=== PATIENT | male | born 1930 | race Caucasian/White ===

== ENCOUNTER → 2018-02-07 | Outpatient (CLI) | payer MEDICARE ==
--- NOTE | 2018-02-07 16:44 | RAD ---
CT of the abdomen and pelvis without contrast, 02/07/2018: HISTORY: Left lower quadrant and epigastric pain Noncontrast scans were obtained as requested. There is a calcified granuloma in the right lung base. Coronary artery calcifications are noted. The gallbladder is surgically absent. The unopacified liver is unremarkable. No pancreatic abnormality is seen. The spleen appears to be at the upper limits of normal in size. It measured 12 cm in craniocaudad extent and contains several calcifications. There are several parenchymal calcifications in both kidneys. There are several right renal cysts including a 6 cm cyst arising anterolaterally. A 1.4 cm hyperdense left renal cortical nodule probably represents a hemorrhagic cyst. The kidneys show no evidence of obstruction. The ureters are not dilated. There are radiopacities along the posterior wall of the urinary bladder compatible with intrarenal calculi. The prostate gland is enlarged measuring 5.7 cm in width and producing a moderate impression upon the floor of the urinary bladder. Moderate aortoiliac calcific plaquing is present.. No abdominal or pelvic adenopathy is seen. There are surgical sutures related to the colon in the proximal sigmoid region. The bowel loops are not dilated. No free air or free fluid is evident in the abdomen or pelvis. There are mild to moderate scattered degenerative changes in the spine with a mild thoracolumbar scoliosis. IMPRESSION: 1. Bilateral nonobstructing intrarenal calculi. 2. Multiple bladder calculi. 3. Bilateral renal cysts, with a probable hemorrhagic cyst in the left kidney. 4. Moderate nonspecific prostatic enlargement. 5. Additional miscellaneous findings as described above. PQRS Compliance Statement: One or more of the following individualized dose reduction techniques were utilized for this examination: 1. Automated exposure control 2. Adjustment of the mA and/or kV according to patient size 3. Use of iterative reconstruction technique Electronically signed by: Daniel Crandall MD (02/07/2018 4:40 PM) [facility]
== END | disposition home or self-care (01) ==
LOC: CT 14:02
PROVIDERS: ATTEND Nurse Practitioner Family
DX: N40.0 Benign prostatic hyperplasia without lower urinary tract symptoms (principal); N28.1 Cyst of kidney, acquired; N21.0 Calculus in bladder; M41.85 Other forms of scoliosis, thoracolumbar region; J84.10 Pulmonary fibrosis, unspecified
CPT/HCPCS: 74176

== ENCOUNTER 2018-04-03 09:35 | Inpatient (IN) | payer MEDICARE ==
[~2018-04-03] VITALS: Ht 177.8 cm; Wt 67.4 kg
[2018-04-03 09:53] VITALS: BP 155/79
[2018-04-03] MEDS ORDERED: LACT1CAP6 PO (09:58)
[2018-04-03] MEDS ORDERED: MIRT30TA3 PO (09:58)
[2018-04-03] MEDS ORDERED: CLON0.5T11 PO (09:58)
[2018-04-03] MEDS ORDERED: CLON1TAB4 PO (09:58)
[2018-04-03] MEDS ORDERED: DOCU100C28 PO (09:58)
[2018-04-03] MEDS ORDERED: OMEP20TA8 PO (09:58)
[2018-04-03] MEDS ORDERED: MULT1TAB52 PO (09:58)
[2018-04-03] MEDS ORDERED: MELA3TAB2 PO (09:58)
[2018-04-03 10:57] LABS: ALBUMIN 3.8 g/dL (3.4-5.0); ALBUMIN/GLOBULIN RATIO 1.2 (1.0-1.7); CALCIUM 9.3 mg/dL (8.5-10.1); CREATININE 1.5 mg/dL (0.7-1.3); GFR 44.4; POTASSIUM 3.8 mmol/L (3.5-5.1); TOTAL BILIRUBIN 0.7 mg/dL (0.2-1.0)
[2018-04-03 11:26] LABS: BASO % 0 % (0-3); EOS % 1 % (0-3); HEMATOCRIT 38.5 % (39.0-53.0); HEMOGLOBIN 13.6 g/dL (13.0-17.5); LYMPH # 0.8 x10^3/uL (1.0-4.8); LYMPH % 16 % (24-48); MEAN CORPUSCULAR HEMOGLOBIN 35 pg (25-35); MEAN CORPUSCULAR HGB CONC 35 g/dL (31-37); MEAN CORPUSCULAR VOLUME 100 fL (79-100); MONO # 0.3 x10^3/uL (0.0-1.1); MONO % 6 % (0-9); NEUT # 3.9 x10^3uL (1.8-7.7); NEUT % 78 % (31-73); PLATELET COUNT 156 x10^3/uL (140-400); RED BLOOD COUNT 3.86 x10^6/uL (4.30-5.70); RED CELL DISTRIBUTION WIDTH 14.5 % (11.5-14.5); WHITE BLOOD COUNT 5.1 x10^3/uL (4.0-11.0)
--- NOTE | 2018-04-03 12:09 | EKG ---
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
[2018-04-03 13:39] LABS: BILIRUBIN,URINE NEG (NEG); CLARITY,URINE CLEAR; COLOR,URINE YELLOW; GLUCOSE,URINE NEG (NEG); NITRITE,URINE NEG (NEG); UROBILINOGEN,URINE 0.2 mg/dL (0.2 mg/dL)
[2018-04-03 13:40] LABS: BACTERIA,URINE FEW /HPF (0-FEW); SQUAMOUS EPITHELIAL CELL,UR OCC /LPF
--- NOTE | 2018-04-03 13:52 | RAD ---
Chest, 2 views, 04/03/2018: HISTORY: Shortness of breath The heart size is normal. There is mild tortuosity of the thoracic aorta. There is attenuation of the peripheral pulmonary vasculature, particularly in the upper lobes, suggesting emphysema. No pulmonary infiltrate is seen. There is no evidence of pleural fluid. There is mild anterior wedging of several upper thoracic vertebral bodies with associated accentuation of the normal upper thoracic kyphosis. Moderate scattered spurs are present. IMPRESSION: 1. Emphysema. 2. No acute infiltrates. Electronically signed by: Daniel Crandall MD (04/03/2018 1:48 PM) [facility]
--- NOTE | 2018-04-03 14:19 | RAD ---
CT of the abdomen and pelvis without contrast, 04/03/2018: HISTORY: Abdominal pain Noncontrast scans were obtained as requested and compared to a study from 02/07/2018. There are multiple bilateral intrarenal calculi. The renal collecting systems and ureters are not dilated. No ureteral calculus is identified. There are several right renal cysts. The largest of these measures 7 cm. A 1.4 cm hyperdense cortical nodule arising from the posterior aspect of the left kidney is unchanged and is probably a hemorrhagic cyst. There are several radiopacities along the posterior wall the urinary bladder compatible with bladder calculi. The enlarged prostate gland is producing a moderate impression upon the floor of the urinary bladder on the left. The bladder walker are otherwise unremarkable. The unopacified liver is unremarkable. The gallbladder is surgically absent. No pancreatic abnormality is seen. The spleen is near the upper limits of normal in size. Moderate aortoiliac calcific plaquing is present without evidence of aneurysm. No abdominal or pelvic adenopathy is seen. There are surgical sutures related to the sigmoid colon. The bowel loops are not dilated. No free fluid or free air is evident in the abdomen or pelvis. There is a moderate thoracolumbar scoliosis with moderate multilevel degenerative change. IMPRESSION: 1. Bilateral nonobstructing intrarenal calculi. 2. Bilateral renal cysts. 3. Multiple small bladder calculi. 4. Nonspecific prostatic enlargement. 5. No acute abdominal abnormality is detected. Electronically signed by: Daniel Crandall MD (04/03/2018 2:15 PM) [facility]
[2018-04-03 15:28] VITALS: BP 118/72
[2018-04-03] MEDS: CALCIUM CARBONATE 500 MG TAB.CHEW PO PRN (18:22)
[2018-04-03] MEDS: MELATONIN 3 MG TABLET PO SCH (20:05)
[2018-04-03] MEDS: DOCUSATE SODIUM 100 MG CAPSULE PO SCH (20:06)
[2018-04-03] MEDS: clonazePAM 1 MG TABLET PO SCH (20:06)
[2018-04-03] MEDS: MIRTAZAPINE 30 MG TABLET PO SCH (20:06)
[2018-04-03 20:26] VITALS: BP 121/70
--- NOTE | 2018-04-03 20:35 | PDOC ---
Exam Note: Lopez Note: Please also refer to the separate dictated note~for this date of service dictated separately.~Patient seen individually. Discussed the patient with Nursing staff reviewed the chart.~Reviewed interim history and current functioning. Reviewed vital signs,~Labs/ Radiology~and current medications noted below. Continue current treatment with the changes noted in the dictated addendum note Assessment: Vital Signs: Vital Signs Date Time Temp Pulse Resp B/P (MAP) Pulse Ox O2 Delivery O2 Flow Rate FiO2 04/03/18 20:26 99.3 71 18 121/70 (87) 95 04/03/18 10:00 Room Air Labs: Laboratory Tests Test 04/03/18 10:20 04/03/18 10:40 04/03/18 11:13 White Blood Count 5.1 x10^3/uL (4.0-11.0) Red Blood Count 3.86 x10^6/uL (4.30-5.70) L Hemoglobin 13.6 g/dL (13.0-17.5) Hematocrit 38.5 % (39.0-53.0) L Mean Corpuscular Volume 100 fL (79-100) Mean Corpuscular Hemoglobin 35 pg (25-35) Mean Corpuscular Hemoglobin Concent 35 g/dL (31-37) Red Cell Distribution Width 14.5 % (11.5-14.5) Platelet Count 156 x10^3/uL (140-400) Neutrophils (%) (Auto) 78 % (31-73) H Lymphocytes (%) (Auto) 16 % (24-48) L Monocytes (%) (Auto) 6 % (0-9) Eosinophils (%) (Auto) 1 % (0-3) Basophils (%) (Auto) 0 % (0-3) Neutrophils # (Auto) 3.9 x10^3uL (1.8-7.7) Lymphocytes # (Auto) 0.8 x10^3/uL (1.0-4.8) L Monocytes # (Auto) 0.3 x10^3/uL (0.0-1.1) Eosinophils # (Auto) 0.0 x10^3/uL (0.0-0.7) Basophils # (Auto) 0.0 x10^3/uL (0.0-0.2) Sodium Level 139 mmol/L (136-145) Potassium Level 3.8 mmol/L (3.5-5.1) Chloride Level 106 mmol/L (98-107) Carbon Dioxide Level 27 mmol/L (21-32) Anion Gap 6 (6-14) Blood Urea Nitrogen 16 mg/dL (8-26) Creatinine 1.5 mg/dL (0.7-1.3) H Estimated GFR (Cockcroft-Gault) 44.4 BUN/Creatinine Ratio 11 (6-20) Glucose Level 124 mg/dL (70-99) H Lactic Acid Level 1.7 mmol/L (0.4-2.0) Calcium Level 9.3 mg/dL (8.5-10.1) Total Bilirubin 0.7 mg/dL (0.2-1.0) Aspartate Amino Transferase (AST) 11 U/L (15-37) L Alanine Aminotransferase (ALT) 25 U/L (16-63) Alkaline Phosphatase 61 U/L (46-116) Creatine Kinase 41 U/L (39-308) Troponin I Quantitative < 0.017 ng/mL (0-0.055) Total Protein 7.0 g/dL (6.4-8.2) Albumin 3.8 g/dL (3.4-5.0) Albumin/Globulin Ratio 1.2 (1.0-1.7) Thyroid Stimulating Hormone (TSH) 1.631 uIU/mL (0.358-3.740) D-Dimer (Love) 0.48 mg/L (0.00-0.50) Urine Collection Type Void Urine Color Yellow Urine Clarity Clear Urine pH 6.5 Urine Specific Spicer 1.015 Urine Protein Neg (NEG-TRACE) Urine Glucose (UA) Neg mg/dL (NEG) Urine Ketones (Stick) Neg mg/dL (NEG) Urine Blood Neg (NEG) Urine Nitrite Neg (NEG) Urine Bilirubin Neg (NEG) Urine Urobilinogen Dipstick 0.2 mg/dL (0.2 mg/dL) Urine Leukocyte Esterase Neg (NEG) Urine RBC 1-2 /HPF (0-2) Urine WBC 1-4 /HPF (0-4) Urine Squamous Epithelial Cells Occ /LPF Urine Bacteria Few /HPF (0-FEW) Urine Mucus Slight /LPF Current Medications: Meds: Current Medications Clonazepam (KlonoPIN) 0.5 mg DAILY PO ; Start 8/13/18 at 09:00 Mirtazapine (Remeron) 30 mg QHS PO Last administered on 04/03/18at 20:06; Start 04/03/18 at 21:00 Clonazepam (KlonoPIN) 1 mg QHS PO Last administered on 04/03/18at 20:06; Start 04/03/18 at 21:00 Docusate Sodium (Colace) 100 mg BID PO Last administered on 04/03/18at 20:06; Start 04/03/18 at 21:00 Lactobacillus Rhamnosus (Culturelle) 1 cap DAILY PO ; Start 04/04/18 at 09:00 Melatonin 3 mg QHS PO Last administered on 04/03/18at 20:05; Start 04/03/18 at 21:00 Multivitamins/ Calcium (Thera-M Plus) 1 tab DAILY PO ; Start 04/04/18 at 09:00 Pantoprazole Sodium (Protonix) 40 mg DAILYAC PO ; Start 04/04/18 at 07:30 Calcium Carbonate/ Glycine (Tums) 500 mg PRN AFTMEALHC PRN PO INDIGESTION Last administered on 04/03/18at 18:22; Start 04/03/18 at 17:00 Active Scripts Active Reported Melatonin 3 Mg Tablet 1 Mg PO HS Mirtazapine 30 Mg Tablet 1 Tab PO QHS Docusate Sodium 100 Mg Capsule 1 Cap PO BID Probiotic (Lactobacillus Acidophilus) 1 Each Capsule 1 Each PO DAILY Multivitamins (Multivitamin) 1 Each Tablet 1 Tab PO DAILY Omeprazole 20 Mg Tablet. 1 Tab PO DAILY Clonazepam 1 Mg Tablet 1 Tab PO QHS Clonazepam 0.5 Mg Tablet 1 Tab PO DAILY I have reviewed the current psychotropics carefully including drug interactions. Risk benefit ratio favors no change other than as noted in my dictated progress note. Diagnosis: Problems: (1) Anxiety disorder (2) Major depressive disorder, recurrent episode RADHA MILLER MD Apr 03, 2018 20:35
[2018-04-04] MEDS: CALCIUM CARBONATE 500 MG TAB.CHEW PO PRN ×2 (00:51→08:18)
[2018-04-04 06:12] VITALS: BP 115/69
[2018-04-04 06:52] LABS: BASO % 1 % (0-3); EOS # 0.1 x10^3/uL (0.0-0.7); EOS % 2 % (0-3); HEMATOCRIT 35.6 % (39.0-53.0); HEMOGLOBIN 12.9 g/dL (13.0-17.5); LYMPH # 1.3 x10^3/uL (1.0-4.8); LYMPH % 18 % (24-48); MEAN CORPUSCULAR HEMOGLOBIN 36 pg (25-35); MEAN CORPUSCULAR HGB CONC 36 g/dL (31-37); MEAN CORPUSCULAR VOLUME 100 fL (79-100); MONO # 0.4 x10^3/uL (0.0-1.1); MONO % 6 % (0-9); NEUT # 5.3 x10^3uL (1.8-7.7); NEUT % 75 % (31-73); PLATELET COUNT 145 x10^3/uL (140-400); RED BLOOD COUNT 3.57 x10^6/uL (4.30-5.70); RED CELL DISTRIBUTION WIDTH 14.4 % (11.5-14.5); WHITE BLOOD COUNT 7.1 x10^3/uL (4.0-11.0)
[2018-04-04 07:02] LABS: CALCIUM 9.1 mg/dL (8.5-10.1); CREATININE 1.3 mg/dL (0.7-1.3); GFR 52.3; POTASSIUM 3.8 mmol/L (3.5-5.1)
[2018-04-04] MEDS: LACTOBACILLUS RHAMNOSUS GG 1 CAPSULE. PO SCH (08:18)
[2018-04-04] MEDS: MULTIVITAMIN with MINERAL TABLET. PO SCH (08:18)
[2018-04-04] MEDS: PANTOPRAZOLE 40 MG TABLET. PO SCH (08:18)
[2018-04-04] MEDS: DOCUSATE SODIUM 100 MG CAPSULE PO SCH ×2 (08:19→21:05)
[2018-04-04] MEDS ORDERED: clonazePAM 0.5 MG TABLET PO SCH (09:00)
[2018-04-04 10:55] VITALS: BP 100/54
[2018-04-04 14:50] VITALS: BP 126/69
--- NOTE | 2018-04-04 18:12 | PDOC ---
Exam Note: Lopez Note: Please also refer to the separate dictated note~for this date of service dictated separately.~Patient seen individually. Discussed the patient with Nursing staff reviewed the chart.~Reviewed interim history and current functioning. Reviewed vital signs,~Labs/ Radiology~and current medications noted below. Continue current treatment with the changes noted in the dictated addendum note Assessment: Vital Signs: Vital Signs Date Time Temp Pulse Resp B/P (MAP) Pulse Ox O2 Delivery O2 Flow Rate FiO2 04/04/18 14:50 98.5 66 18 126/69 (88) 97 Room Air I&O Intake and Output 04/04/18 06:59 Intake Total 500 ml Output Total 325 ml Balance 175 ml Intake Oral 500 ml Output Urine Total 325 ml # Voids 2 Labs: Laboratory Tests Test 04/04/18 05:35 White Blood Count 7.1 x10^3/uL (4.0-11.0) Red Blood Count 3.57 x10^6/uL (4.30-5.70) L Hemoglobin 12.9 g/dL (13.0-17.5) L Hematocrit 35.6 % (39.0-53.0) L Mean Corpuscular Volume 100 fL (79-100) Mean Corpuscular Hemoglobin 36 pg (25-35) H Mean Corpuscular Hemoglobin Concent 36 g/dL (31-37) Red Cell Distribution Width 14.4 % (11.5-14.5) Platelet Count 145 x10^3/uL (140-400) Neutrophils (%) (Auto) 75 % (31-73) H Lymphocytes (%) (Auto) 18 % (24-48) L Monocytes (%) (Auto) 6 % (0-9) Eosinophils (%) (Auto) 2 % (0-3) Basophils (%) (Auto) 1 % (0-3) Neutrophils # (Auto) 5.3 x10^3uL (1.8-7.7) Lymphocytes # (Auto) 1.3 x10^3/uL (1.0-4.8) Monocytes # (Auto) 0.4 x10^3/uL (0.0-1.1) Eosinophils # (Auto) 0.1 x10^3/uL (0.0-0.7) Basophils # (Auto) 0.0 x10^3/uL (0.0-0.2) Sodium Level 143 mmol/L (136-145) Potassium Level 3.8 mmol/L (3.5-5.1) Chloride Level 107 mmol/L (98-107) Carbon Dioxide Level 27 mmol/L (21-32) Anion Gap 9 (6-14) Blood Urea Nitrogen 15 mg/dL (8-26) Creatinine 1.3 mg/dL (0.7-1.3) Estimated GFR (Cockcroft-Gault) 52.3 Glucose Level 103 mg/dL (70-99) H Calcium Level 9.1 mg/dL (8.5-10.1) Current Medications: Meds: Current Medications Clonazepam (KlonoPIN) 0.5 mg DAILY PO Last administered on 04/04/18 08:18; Start 04/04/18 at 09:00 Mirtazapine (Remeron) 30 mg QHS PO Last administered on 04/03/18at 20:06; Start 04/03/18 at 21:00 Clonazepam (KlonoPIN) 1 mg QHS PO Last administered on 04/03/18at 20:06; Start 04/03/18 at 21:00 Docusate Sodium (Colace) 100 mg BID PO Last administered on 04/04/18 08:19; Start 04/03/18 at 21:00 Lactobacillus Rhamnosus (Culturelle) 1 cap DAILY PO Last administered on at 08:18; Start 04/04/18 at 09:00 Melatonin 3 mg QHS PO Last administered on 04/03/18at 20:05; Start 04/03/18 at 21:00 Multivitamins/ Calcium (Thera-M Plus) 1 tab DAILY PO Last administered on at 08:18; Start 04/04/18 at 09:00 Pantoprazole Sodium (Protonix) 40 mg DAILYAC PO Last administered on 04/04/18 08:18; Start 04/04/18 at 07:30 Calcium Carbonate/ Glycine (Tums) 500 mg PRN AFTMEALHC PRN PO INDIGESTION Last administered on 04/04/18at 08:18; Start 04/03/18 at 17:00 Active Scripts Active Reported Melatonin 3 Mg Tablet 1 Mg PO HS Mirtazapine 30 Mg Tablet 1 Tab PO QHS Docusate Sodium 100 Mg Capsule 1 Cap PO BID Probiotic (Lactobacillus Acidophilus) 1 Each Capsule 1 Each PO DAILY Multivitamins (Multivitamin) 1 Each Tablet 1 Tab PO DAILY Omeprazole 20 Mg Tablet. 1 Tab PO DAILY Clonazepam 1 Mg Tablet 1 Tab PO QHS Clonazepam 0.5 Mg Tablet 1 Tab PO DAILY I have reviewed the current psychotropics carefully including drug interactions. Risk benefit ratio favors no change other than as noted in my dictated progress note. 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
[2018-04-04] MEDS ORDERED: POLY17PO5 PO (18:29)
[2018-04-04 19:56] VITALS: BP 127/70
[2018-04-04] MEDS: MIRTAZAPINE 30 MG TABLET PO SCH (21:05)
[2018-04-04] MEDS: clonazePAM 1 MG TABLET PO SCH (21:05)
[2018-04-04] MEDS: MELATONIN 3 MG TABLET PO SCH (21:05)
--- NOTE | 2018-04-04 22:59 | CONS ---
DATE OF CONSULTATION: 04/03/2018 PSYCHIATRIC CONSULTATION This is late entry, date of service 04/03, covers elements not covered in my initial note, 04/03. SUBJECTIVE: I met with the patient in the evening. IDENTIFYING DATA: The patient is an 87-year-old male seen in bed 103, [facility], for a psychiatric consult requested by Dr. Palencia on account of the patient's change in mental status, depression, confusion. The patient seen individually, discussed with nursing staff, reviewed the chart. CHIEF COMPLAINT: "I came here this morning. [place], the year is 1917. The president, O I can't think of his name." HISTORY OF PRESENT ILLNESS: The patient has a history of dementia, Alzheimer's, vascular with depression and anxiety. He was admitted from home on account of worsening confusion. He lives alone at home with his niece involved in his care, but there have been concerns about his safety living at home, possibly needing a more structured placement. He complains of ongoing insomnia. No clear suicidal or homicidal ideation. No clear psychotic symptoms. No symptoms of bipolar disorder. PAST PSYCHIATRIC HISTORY: Positive for progressive memory deficits, depression, anxiety. MEDICAL HISTORY: Chronic constipation, GERD. CURRENT PSYCHOTROPICS: Klonopin 1 mg at bedtime, 0.5 mg in the morning; melatonin 3 mg at bedtime; Remeron 30 mg at bedtime. DRUG ALLERGIES: Negative. FAMILY HISTORY: Noncontributory. 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 No alcohol or drug abuse, physical, sexual or elder abuse history is noted. When specifically questioned on alcohol, he stated "I would snort it once in a while." MENTAL STATUS EXAM: The patient was seen individually evening of 04/03. He is oriented to himself, situation at times, unaware of the year as noted, unaware of the President, though he did not know he was admitted earlier in the day on 04/03. It is concerning that he lives alone at home. Speech has some latency, coherent. Abstraction fair, computation impaired, language function intact. No suicidal or homicidal ideation. IMPRESSION: Major neurocognitive disorder, probably Alzheimer, vascular with depression, delusions; anxiety disorder, unspecified. Rest as above. PLAN: From a psychiatric standpoint, we may need to reduce the patient's Klonopin since it could be worsening his cognition and increase the fall risk. Maintain melatonin, Remeron for now. This patient probably needs a higher level of care rather than returning home and if needed, we may transfer him to the [facility] prior to transfer to a nursing facility. Dr. Palencia, thank you for the opportunity to participate in your patient's care. We will follow with you. RADHA MILLER MD DR: ALNA/nts JOB#: [id number] / [id number]
--- NOTE | 2018-04-04 23:01 | PN ---
DATE: 04/04/2018 PSYCHIATRIC PROGRESS NOTE This note covers elements not covered in my initial note 04/04. SUBJECTIVE: The patient was seen individually. Per nursing report, the patient remains confused, but otherwise cooperative. No psychotic symptoms, suicidal or homicidal ideation. He has had some ongoing insomnia. MENTAL STATUS EXAM: Oriented to himself. Insight, judgment, recent memory is impaired. Language function intact. Attention span short. Mood and affect somewhat withdrawn. LABORATORY DATA: Reviewed. IMPRESSION: Unchanged from initial note. PLAN: Stop the morning Klonopin. We will gradually reduce the nighttime Klonopin as well. Rest unchanged from initial note. MAN Berta MILLER MD DR: ALAN/thomas JOB#: [id number] / [id number]
--- NOTE | 2018-04-05 01:34 | PN ---
DATE: SUBJECTIVE: An 87-year-old gentleman who came in with acute change in mental status, markedly confused, disoriented, not able to give the year or rough year. Otherwise, the patient's labs look basically stable. PHYSICAL EXAMINATION: VITAL SIGNS: Blood pressure 100/54, respiration 18, pulse 65, afebrile. GENERAL: The patient is alert and oriented, somewhat confused and disoriented at times. The patient was complaining of some abdominal pain and basically did not show anything specifically to evaluate that. In any case, the patient is making relatively good progress. Seeing Dr. Alvarez. IMPRESSION: Acute mental status change. PLAN: As above. JC ELLIS MD DR: GAUTAM/thomas JOB#: [id number] / [id number]
[2018-04-05 02:04] VITALS: BP 116/72
[2018-04-05 06:36] VITALS: BP 127/73
[2018-04-05] MEDS: LACTOBACILLUS RHAMNOSUS GG 1 CAPSULE. PO SCH (07:33)
[2018-04-05] MEDS: MULTIVITAMIN with MINERAL TABLET. PO SCH (07:33)
[2018-04-05] MEDS: DOCUSATE SODIUM 100 MG CAPSULE PO SCH (07:33)
[2018-04-05] MEDS: PANTOPRAZOLE 40 MG TABLET. PO SCH (07:33)
[2018-04-05] MEDS ORDERED: POLYETHYLENE GLYCOL 3350 17 GM PACKET. PO SCH (09:00)
[2018-04-05] MEDS ORDERED: CALC200T23 PO (14:11)
[2018-04-05 14:39] VITALS: BP 144/77
== END 2018-04-05 15:12 | DRG 690 ==
LOC: 1 SOUTH 09:35 → LND 04-04 20:59
PROVIDERS: ADMIT Family Medicine; ATTEND Family Medicine
DX: N39.0 Urinary tract infection, site not specified (principal); F33.9 Major depressive disorder, recurrent, unspecified; F01.50 Vascular dementia, unspecified severity, without behavioral disturbance, psychotic disturbance, mood disturbance, and anxiety; F02.80 Dementia in other diseases classified elsewhere, unspecified severity, without behavioral disturbance, psychotic disturbance, mood disturbance, and anxiety; F41.9 Anxiety disorder, unspecified; F63.9 Impulse disorder, unspecified; G30.9 Alzheimer's disease, unspecified; G47.00 Insomnia, unspecified; K21.9 Gastro-esophageal reflux disease without esophagitis; K59.09 Other constipation; I10 Essential (primary) hypertension
CPT/HCPCS: 36415; 71046; 74176; 80048; 80053; 81001; 82550; 82607; 83605; 84443; 84484; 85025; 85379; 93005; 97110; 97530; 97535

== ENCOUNTER 2018-04-05 15:05 | Inpatient (IN) | payer MEDICARE ==
[~2018-04-05] VITALS: Ht 172.7 cm; Wt 67.3 kg
[~2018-04-05 15:05] MED LIST: CALC200T23 PO; CLON0.5T11 PO; CLON1TAB4 PO; DOCU100C28 PO; LACT1CAP6 PO; MELA3TAB2 PO; MIRT30TA3 PO; MULT1TAB52 PO; OMEP20TA8 PO; POLY17PO5 PO
[2018-04-05 16:18] VITALS: BP 144/77
[2018-04-05] MEDS ORDERED: MAG HYDROX/AL HYDROX/SIMETH 30 ML ORAL.SUSP PO PRN (17:45)
[2018-04-05] MEDS ORDERED: ACETAMINOPHEN 325 MG TABLET PO PRN (17:45)
[2018-04-05] MEDS ORDERED: METHYL SALICYLATE/MENTHOL TOPICAL OINTMENT 29GM TUBE. TP PRN (17:45)
[2018-04-05] MEDS ORDERED: MAGNESIUM HYDROXIDE 2,400 MG/30 ML ORAL.SUSP. PO PRN (17:45)
[2018-04-05] MEDS: DOCUSATE SODIUM 100 MG CAPSULE PO SCH (19:55)
[2018-04-05] MEDS: MELATONIN 3 MG TABLET PO SCH (19:55)
[2018-04-05] MEDS: MIRTAZAPINE 30 MG TABLET PO SCH (19:55)
[2018-04-05 20:31] LABS: BASO % 1 % (0-3); EOS # 0.1 x10^3/uL (0.0-0.7); EOS % 1 % (0-3); HEMATOCRIT 38.4 % (39.0-53.0); HEMOGLOBIN 13.5 g/dL (13.0-17.5); LYMPH % 16 % (24-48); MEAN CORPUSCULAR HEMOGLOBIN 36 pg (25-35); MEAN CORPUSCULAR HGB CONC 35 g/dL (31-37); MEAN CORPUSCULAR VOLUME 101 fL (79-100); MONO # 0.3 x10^3/uL (0.0-1.1); MONO % 6 % (0-9); NEUT # 4.8 x10^3uL (1.8-7.7); NEUT % 77 % (31-73); PLATELET COUNT 160 x10^3/uL (140-400); RED CELL DISTRIBUTION WIDTH 14.3 % (11.5-14.5); WHITE BLOOD COUNT 6.3 x10^3/uL (4.0-11.0)
[2018-04-05 20:44] LABS: ALBUMIN 3.8 g/dL (3.4-5.0); ALBUMIN/GLOBULIN RATIO 1.2 (1.0-1.7); CREATININE 1.5 mg/dL (0.7-1.3); GFR 44.4; MAGNESIUM 1.9 mg/dL (1.8-2.4); POTASSIUM 3.9 mmol/L (3.5-5.1); TOTAL BILIRUBIN 0.6 mg/dL (0.2-1.0)
[2018-04-06 00:27] VITALS: BP 135/90
[2018-04-06] MEDS: traZODone 50 MG TABLET. PO PRN ×2 (00:27→23:15)
[2018-04-06 05:46] VITALS: BP 135/75
[2018-04-06] MEDS: POLYETHYLENE GLYCOL 3350 17 GM PACKET. PO SCH (08:17)
[2018-04-06] MEDS: PANTOPRAZOLE 40 MG TABLET. PO SCH (08:17)
[2018-04-06] MEDS: LACTOBACILLUS RHAMNOSUS GG 1 CAPSULE. PO SCH (08:17)
[2018-04-06] MEDS: DOCUSATE SODIUM 100 MG CAPSULE PO SCH ×2 (08:17→19:33)
[2018-04-06] MEDS: MULTIVITAMIN with MINERAL TABLET. PO SCH (08:17)
[2018-04-06 12:47] LABS: THYROID STIM HORMONE (TSH) 2.209 uIU/mL (0.358-3.740)
[2018-04-06] MEDS ORDERED: OLANZapine 2.5 MG TABLET PO PRN (14:45)
[2018-04-06 16:12] LABS: THYROXINE 7.7 ug/dL (4.5-12.0)
[2018-04-06 16:19] VITALS: BP 167/90
[2018-04-06] MEDS: OLANZapine 2.5 MG TABLET PO PRN (17:41)
[2018-04-06] MEDS: MIRTAZAPINE 30 MG TABLET PO SCH (19:33)
[2018-04-06] MEDS: CALCIUM CARBONATE 500 MG TAB.CHEW PO PRN (19:33)
[2018-04-06] MEDS: MELATONIN 3 MG TABLET PO SCH (19:33)
--- NOTE | 2018-04-06 21:59 | HP ---
ADMIT DATE: 04/05/2018 PSYCHIATRIC ADMISSION HISTORY/EVALUATION This late entry date of service 04/05/2018 covers elements not covered in my initial note. SUMMARY OF PROGRESS: Met with the patient in the evening of 04/05/2018. IDENTIFYING DATA: The patient is an 87-year-old male referred to us from [address] [place] [address] Medical/Surgical floor by Dr. Gandhi, his primary care physician on account of worsening confusion, symptoms of depression, agitation. I had followed the patient on the medical/surgical floor [address] [place] [address] from a psychiatric standpoint referred by Dr. Palencia on account of worsening anxiety, depression within the context of his dementia. The patient has been living at home by himself. Niece was involved in his care. He has been extremely disorganized, potential danger, unsafe, living alone by himself admitted to [address] [place] [address], medically stabilized and then referred to us for psychiatric stabilization. 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 He has had sleep and appetite changes, worsening depression, anxiety, felt to be unsafe by herself at home and was admitted to [address] [place] [address]. No clear history of bipolar disorder, suicidal or homicidal ideation. PAST PSYCHIATRIC HISTORY: As above. PAST MEDICAL HISTORY: History of renal stone, status post cholecystectomy, GERD, chronic constipation, dementia. CURRENT PSYCHOTROPICS: Melatonin 3 mg at bedtime, Remeron 30 mg at bedtime, Klonopin was 0.5 mg a.m., 1 mg at bedtime and had reduced this on [address] [place] [address] to 1 mg at bedtime in an attempt to taper and ultimately discontinue it. DRUG ALLERGIES: Negative. CODE STATUS: DNR. DIET: Regular. Takes medications whole, ambulates up ad monty. No assistive devices. FAMILY HISTORY: Noncontributory. SOCIAL HISTORY: Lives alone by himself as noted. No alcohol or drug abuse, physical, sexual or elder abuse history is noted. Not known to be a perpetrator. 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 REACTION TO HOSPITALIZATION: The patient is oblivious of this. ASSETS: Supportive family. MENTAL STATUS EXAMINATION: The patient is oriented to himself. Insight, judgment, recent and remote memory, attention, concentration, fund of knowledge is poor, consistent with his diagnoses. He is quite anxious, restless, somewhat paranoid at times. No suicidal or homicidal ideation. IMPRESSION: Major neurocognitive disorder; Alzheimer's vascular with delusion, depression, behavioral disturbance; anxiety disorder, unspecified; impulse control disorder, unspecified. Rest as above. PLAN: Admit to Geropsychiatry Unit at [facility]. I will see the patient daily individually from a psychiatric standpoint, medical followup per Dr. Gandhi/Dr. Rose/Dr. Rizvi. Continue current psychotropics, observe baseline, adjust psychotropics as clinically indicated. Taper and stop the Klonopin, if needed. Will add Seroquel for anxiety, mood lability, psychotic symptoms. Estimated length of stay 10-12 days. DISCHARGE DISPOSITION: Plans to long-term, possibly. MAN Berta MILLER MD DR: ALAN/thomas JOB#: [id number] / [id number]
[2018-04-07 01:07] LABS: HEMOGLOBIN A1C 4.7 % (4.8-5.6)
[2018-04-07] MEDS: traZODone 50 MG TABLET. PO PRN ×2 (02:11→19:39)
--- NOTE | 2018-04-07 02:54 | PDOC ---
Exam Note: Lopez Note: Please also refer to the separate dictated note~for this date of service dictated separately.~Patient seen individually. Discussed the patient with Nursing staff reviewed the chart.~Reviewed interim history and current functioning. Reviewed vital signs,~Labs/ Radiology~and current medications noted below. Continue current treatment with the changes noted in the dictated addendum note Assessment: Vital Signs: Vital Signs Date Time Temp Pulse Resp B/P (MAP) Pulse Ox O2 Delivery O2 Flow Rate FiO2 04/06/18 16:19 98.0 93 22 167/90 (115) 95 04/06/18 05:46 Room Air I&O Intake and Output 04/07/18 07:00 Intake Total 1200 ml Balance 1200 ml Intake Oral 1200 ml # Voids 1 Current Medications: Meds: Current Medications Acetaminophen (Tylenol) 650 mg PRN Q6HRS PRN PO PAIN / TEMP; Start 04/05/18 at 17:45 Multi-Ingredient Ointment (Analgesic [place]) 1 danica PRN QID PRN TP MUSCLE PAIN; Start 04/05/18 at 17:45 Al Hydroxide/Mg Hydroxide (Mylanta Plus Xs) 15 ml PRN AFTMEALHC PRN PO DYSPEPSIA Last administered on 04/07/18at 02:11; Start 04/05/18 at 17:45 Magnesium Hydroxide (Milk Of Magnesia) 2,400 mg PRN QHS PRN PO CONSTIPATION; Start 04/05/18 at 17:45 Calcium Carbonate/ Glycine (Tums) 500 mg PRN AFTMEALHC PRN PO INDIGESTION Last administered on 04/06/18at 19:33; Start 04/05/18 at 18:30 Mirtazapine (Remeron) 30 mg QHS PO Last administered on 04/06/18at 19:33; Start 04/05/18 at 21:00 Docusate Sodium (Colace) 100 mg BID PO Last administered on 04/06/18 19:33; Start 04/05/18 at 21:00 Lactobacillus Rhamnosus (Culturelle) 1 cap DAILY PO Last administered on at 08:17; Start 04/06/18 at 09:00 Melatonin 3 mg HS PO Last administered on 04/06/18at 19:33; Start 04/05/18 at 21 :00 Multivitamins/ Calcium (Thera-M Plus) 1 tab DAILY PO Last administered on 08:17; Start 04/06/18 at 09:00 Pantoprazole Sodium (Protonix) 40 mg DAILY PO Last administered on 04/06/18at 08 :17; Start 04/06/18 at 09:00 Polyethylene Glycol (miraLAX) 17 gm DAILY PO Last administered on 04/06/18at 08: 17; Start 04/06/18 at 09:00 Trazodone HCl (Desyrel) 50 mg PRN QHS PRN PO INSOMNIA Last administered on 04/07at 02:11; Start 04/06/18 at 00:15 Olanzapine (ZyPREXA) 2.5 mg PRN Q24HRS PRN PO PSYCHOSIS; Start 04/06/18 at 14: 45; Stop 04/06/18 at 14:59; Status DC Olanzapine (ZyPREXA) 2.5 mg PRN Q2HR PRN PO ANXIETY/PSYCHOSIS Last administered on 04/06/18at 17:41; Start 04/06/18 at 15:00 Active Scripts Active Calcium Carbonate 200 Mg Tab.chew 500 Mg PO PRN AFTMEALHC PRN 30 Days Reported Miralax (Polyethylene Glycol 3350) 17 Gm Powd.pack 1 Packet PO DAILY LAST DOSE GIVEN: DATE: TIME: NEXT DOSE DUE: DATE: TIME: Melatonin 3 Mg Tablet 1 Mg PO HS Mirtazapine 30 Mg Tablet 1 Tab PO QHS Docusate Sodium 100 Mg Capsule 1 Cap PO BID Probiotic (Lactobacillus Acidophilus) 1 Each Capsule 1 Each PO DAILY Multivitamins (Multivitamin) 1 Each Tablet 1 Tab PO DAILY Omeprazole 20 Mg Tablet. 1 Tab PO DAILY Clonazepam 1 Mg Tablet 1 Tab PO QHS I have reviewed the current psychotropics carefully including drug interactions. Risk benefit ratio favors no change other than as noted in my dictated progress note. Diagnosis: Problems: (1) Anxiety disorder (2) Impulse control disorder (3) Dementia, vascular, with depression (4) Dementia in Alzheimer's disease with depression (5) Altered mental status (6) Anxiety disorder (7) Major depressive disorder, recurrent episode RADHA MILLER MD Apr 07, 2018 02:54
[2018-04-07] MEDS: CALCIUM CARBONATE 500 MG TAB.CHEW PO PRN (03:13)
[2018-04-07 06:15] VITALS: BP 106/67
--- NOTE | 2018-04-07 07:40 | PDOC1 ---
History of Present Illness Reason for Visit: this document was mistakenly opened please see consultation note. Allergies: Coded Allergies: No Known Drug Allergies (Unverified , 04/03/18) Review of Systems Review Of Systems Fourteen system , review of systems has been reviewed. See HPI for pertinent positives and negative responses, other mccollum all other systems are negative, non pertinent or non contributory Medications Current Medications Acetaminophen (Tylenol) 650 mg PRN Q6HRS PRN PO PAIN / TEMP; Start 04/05/18 at 17:45 Multi-Ingredient Ointment (Analgesic [place]) 1 danica PRN QID PRN TP MUSCLE PAIN; Start 04/05/18 at 17:45 Al Hydroxide/Mg Hydroxide (Mylanta Plus Xs) 15 ml PRN AFTMEALHC PRN PO DYSPEPSIA Last administered on 04/07/18at 02:11; Start 04/05/18 at 17:45 Magnesium Hydroxide (Milk Of Magnesia) 2,400 mg PRN QHS PRN PO CONSTIPATION; Start 04/05/18 at 17:45 Calcium Carbonate/ Glycine (Tums) 500 mg PRN AFTMEALHC PRN PO INDIGESTION Last administered on 04/07/18at 03:13; Start 04/05/18 at 18:30 Mirtazapine (Remeron) 30 mg QHS PO Last administered on 04/06/18 19:33; Start 04/05/18 at 21:00 Docusate Sodium (Colace) 100 mg BID PO Last administered on 04/06/18 19:33; Start 04/05/18 at 21:00 Lactobacillus Rhamnosus (Culturelle) 1 cap DAILY PO Last administered on at 08:17; Start 04/06/18 at 09:00 Melatonin 3 mg HS PO Last administered on 04/06/18 19:33; Start 04/05/18 at 21 :00 Multivitamins/ Calcium (Thera-M Plus) 1 tab DAILY PO Last administered on 08:17; Start 04/06/18 at 09:00 Pantoprazole Sodium (Protonix) 40 mg DAILY PO Last administered on 04/06/18 08 :17; Start 04/06/18 at 09:00 Polyethylene Glycol (miraLAX) 17 gm DAILY PO Last administered on 04/06/18 08: 17; Start 04/06/18 at 09:00 Trazodone HCl (Desyrel) 50 mg PRN QHS PRN PO INSOMNIA Last administered on 04/07at 02:11; Start 04/06/18 at 00:15 Olanzapine (ZyPREXA) 2.5 mg PRN Q24HRS PRN PO PSYCHOSIS; Start 04/06/18 at 14: 45; Stop 04/06/18 at 14:59; Status DC Olanzapine (ZyPREXA) 2.5 mg PRN Q2HR PRN PO ANXIETY/PSYCHOSIS Last administered on 04/06/18at 17:41; Start 04/06/18 at 15:00 Active Scripts Active Calcium Carbonate 200 Mg Tab.chew 500 Mg PO PRN AFTMEALHC PRN 30 Days Reported Miralax (Polyethylene Glycol 3350) 17 Gm Powd.pack 1 Packet PO DAILY LAST DOSE GIVEN: DATE: TIME: NEXT DOSE DUE: DATE: TIME: Melatonin 3 Mg Tablet 1 Mg PO HS Mirtazapine 30 Mg Tablet 1 Tab PO QHS Docusate Sodium 100 Mg Capsule 1 Cap PO BID Probiotic (Lactobacillus Acidophilus) 1 Each Capsule 1 Each PO DAILY Multivitamins (Multivitamin) 1 Each Tablet 1 Tab PO DAILY Omeprazole 20 Mg Tablet.dr 1 Tab PO DAILY Clonazepam 1 Mg Tablet 1 Tab PO QHS Exam Vital Signs Vital Signs Date Time Temp Pulse Resp B/P (MAP) Pulse Ox O2 Delivery O2 Flow Rate FiO2 04/07/18 06:15 97.4 93 20 106/67 (80) 96 04/06/18 05:46 Room Air COURSE Allergies Coded Allergies Type Severity Reaction Last Updated Verified No Known Drug Allergies 04/03/18 No Current Medications Medications (Trade) Dose Ordered Sig/Cece Route PRN Reason Start Time Stop Time Status Last Admin Dose Admin Lactobacillus Rhamnosus (Culturelle) 1 cap DAILY PO 04/06/18 09:00 04/06/18 08:17 Multivitamins/ Calcium (Thera-M Plus) 1 tab DAILY PO 04/06/18 09:00 04/06/18 08:17 Pantoprazole Sodium (Protonix) 40 mg DAILY PO 04/06/18 09:00 04/06/18 08:17 Polyethylene Glycol (miraLAX) 17 gm DAILY PO 04/06/18 09:00 04/06/18 08:17 Olanzapine (ZyPREXA) 2.5 mg PRN Q24HRS PRN PO PSYCHOSIS 04/06/18 14:45 04/06/18 14:59 DC Olanzapine (ZyPREXA) 2.5 mg PRN Q2HR PRN PO ANXIETY/PSYCHOSIS 04/06/18 15:00 04/06/18 17:41 I & O 04/07/18 00:00 Intake Total 1200 ml Balance 1200 ml Orders Procedure Category Date Status Time Olanzapine (Zyprexa) PHA 04/06/18 Complete 14:45 Olanzapine (Zyprexa) PHA 04/06/18 In Process 15:00 Vital Signs Date Time Temp Pulse Resp B/P (MAP) Pulse Ox O2 Delivery O2 Flow Rate FiO2 04/07/18 06:15 97.4 93 20 106/67 (80) 96 04/06/18 05:46 Room Air AMEE MCGUIRE DO Apr 07, 2018 07:40
--- NOTE | 2018-04-07 07:47 | PDOC2 ---
CONSULT Date of Admission DATE: 04/05/18 Reason for Consult: Medical management Referring Physician: Dr Alvarez Chief Complaint Worsening confusion and depression Source: Caregiver, Chart review, Patient History of Present Illness Note: Late entry date of service 04/06/2018 I initially evaluated the patient on April 05 as nursing staff had advised me to discharge him to the senior behavioral unit. After evaluating him and the getting to review the chart I discovered he was a patient of Dr. Palencia and aborted my attempt to discharge him. I saw him again on April 05 for consultation of medical management on the senior behavioral unit. Patient referred to the senior behavioral unit by his PCP for worsening symptoms of confusion, depression, and agitation. Staff also noticed worsening anxiety and depression despite his baseline dementia. Prior to admission the patient lived alone and his niece tried to help take care of him. It was felt that he may represent a danger to himself and he was admitted to [address] [place] [address] for medical stabilization prior to inpatient psychiatric treatment on the senior behavioral unit. Family staff and also noticed decreased appetite and difficulty sleeping. No real reports of combative behavior, suicidal or homicidal ideation. On my evaluation he did not attempt to verbalize, did nod his head no when asked if he was in any discomfort. He is ambulatory without any assistive devices and wandering, confused. He has DNR. Past Medical History Gastroesophageal reflux disease, chronic constipation, dementia, kidney stones Past Surgical History: Cholecystectomy Family History Unavailable and noncontributory ALCOHOL: none Drugs: None Lives: Alone (with some family support) Domestic Violence: Neg Current Medications Current Medications Acetaminophen (Tylenol) 650 mg PRN Q6HRS PRN PO PAIN / TEMP; Start 04/05/18 at 17:45 Multi-Ingredient Ointment (Analgesic [place]) 1 danica PRN QID PRN TP MUSCLE PAIN; Start 04/05/18 at 17:45 Al Hydroxide/Mg Hydroxide (Mylanta Plus Xs) 15 ml PRN AFTMEALHC PRN PO DYSPEPSIA Last administered on 04/07/18at 02:11; Start 04/05/18 at 17:45 Magnesium Hydroxide (Milk Of Magnesia) 2,400 mg PRN QHS PRN PO CONSTIPATION; Start 04/05/18 at 17:45 Calcium Carbonate/ Glycine (Tums) 500 mg PRN AFTMEALHC PRN PO INDIGESTION Last administered on 04/07/18 03:13; Start 04/05/18 at 18:30 Mirtazapine (Remeron) 30 mg QHS PO Last administered on 04/06/18 19:33; Start 04/05/18 at 21:00 Docusate Sodium (Colace) 100 mg BID PO Last administered on 04/06/18 19:33; Start 04/05/18 at 21:00 Lactobacillus Rhamnosus (Culturelle) 1 cap DAILY PO Last administered on 08:17; Start 04/06/18 at 09:00 Melatonin 3 mg HS PO Last administered on 04/06/18 19:33; Start 04/05/18 at 21 :00 Multivitamins/ Calcium (Thera-M Plus) 1 tab DAILY PO Last administered on 08:17; Start 04/06/18 at 09:00 Pantoprazole Sodium (Protonix) 40 mg DAILY PO Last administered on 04/06/18 08 :17; Start 04/06/18 at 09:00 Polyethylene Glycol (miraLAX) 17 gm DAILY PO Last administered on 04/06/18 08: 17; Start 04/06/18 at 09:00 Trazodone HCl (Desyrel) 50 mg PRN QHS PRN PO INSOMNIA Last administered on 04/07 02:11; Start 04/06/18 at 00:15 Olanzapine (ZyPREXA) 2.5 mg PRN Q24HRS PRN PO PSYCHOSIS; Start 04/06/18 at 14: 45; Stop 04/06/18 at 14:59; Status DC Olanzapine (ZyPREXA) 2.5 mg PRN Q2HR PRN PO ANXIETY/PSYCHOSIS Last administered on 04/06/18 17:41; Start 04/06/18 at 15:00 Active Scripts Active Calcium Carbonate 200 Mg Tab.chew 500 Mg PO PRN AFTMEALHC PRN 30 Days Reported Miralax (Polyethylene Glycol 3350) 17 Gm Powd.pack 1 Packet PO DAILY LAST DOSE GIVEN: DATE: TIME: NEXT DOSE DUE: DATE: TIME: Melatonin 3 Mg Tablet 1 Mg PO HS Mirtazapine 30 Mg Tablet 1 Tab PO QHS Docusate Sodium 100 Mg Capsule 1 Cap PO BID Probiotic (Lactobacillus Acidophilus) 1 Each Capsule 1 Each PO DAILY Multivitamins (Multivitamin) 1 Each Tablet 1 Tab PO DAILY Omeprazole 20 Mg Tablet. 1 Tab PO DAILY Clonazepam 1 Mg Tablet 1 Tab PO QHS Allergies: Coded Allergies: No Known Drug Allergies (Unverified , 04/03/18) Review of System Review of systems as per history of present illness, accurate review of systems from the patient is unavailable. General: Alert, No acute distress, Other (confused and pleasant) HEENT: Atraumatic, Mucous membr. moist/pink Lungs: Clear to auscultation, Normal air movement Heart: Regular rate, No murmurs Abdomen: Normal bowel sounds, Soft, No masses Neuro: Other (moves all extremities no lateralizing neuro deficits as tested) Psych/Mental Status: Other (confused and disoriented) VITALS Vital Signs Date Time Temp Pulse Resp B/P (MAP) Pulse Ox O2 Delivery O2 Flow Rate FiO2 04/07/18 06:15 97.4 93 20 106/67 (80) 96 04/06/18 05:46 Room Air Labs Laboratory Tests Test 04/05/18 20:15 White Blood Count 6.3 x10^3/uL (4.0-11.0) Red Blood Count 3.80 x10^6/uL (4.30-5.70) Hemoglobin 13.5 g/dL (13.0-17.5) Hematocrit 38.4 % (39.0-53.0) Mean Corpuscular Volume 101 fL (79-100) Mean Corpuscular Hemoglobin 36 pg (25-35) Mean Corpuscular Hemoglobin Concent 35 g/dL (31-37) Red Cell Distribution Width 14.3 % (11.5-14.5) Platelet Count 160 x10^3/uL (140-400) Neutrophils (%) (Auto) 77 % (31-73) Lymphocytes (%) (Auto) 16 % (24-48) Monocytes (%) (Auto) 6 % (0-9) Eosinophils (%) (Auto) 1 % (0-3) Basophils (%) (Auto) 1 % (0-3) Neutrophils # (Auto) 4.8 x10^3uL (1.8-7.7) Lymphocytes # (Auto) 1.0 x10^3/uL (1.0-4.8) Monocytes # (Auto) 0.3 x10^3/uL (0.0-1.1) Eosinophils # (Auto) 0.1 x10^3/uL (0.0-0.7) Basophils # (Auto) 0.0 x10^3/uL (0.0-0.2) Sodium Level 140 mmol/L (136-145) Potassium Level 3.9 mmol/L (3.5-5.1) Chloride Level 105 mmol/L (98-107) Carbon Dioxide Level 24 mmol/L (21-32) Anion Gap 11 (6-14) Blood Urea Nitrogen 20 mg/dL (8-26) Creatinine 1.5 mg/dL (0.7-1.3) Estimated GFR (Cockcroft-Gault) 44.4 BUN/Creatinine Ratio 13 (6-20) Glucose Level 138 mg/dL (70-99) Hemoglobin A1c 4.7 % (4.8-5.6) Calcium Level 9.0 mg/dL (8.5-10.1) Magnesium Level 1.9 mg/dL (1.8-2.4) Iron Level 59 ug/dL (65-175) Total Iron Binding Capacity 218 ug/dL (250-450) Iron Saturation 27 % (15-34) Total Bilirubin 0.6 mg/dL (0.2-1.0) Aspartate Amino Transf (AST/SGOT) 13 U/L (15-37) Alanine Aminotransferase (ALT/SGPT) 25 U/L (16-63) Alkaline Phosphatase 65 U/L (46-116) Total Protein 7.0 g/dL (6.4-8.2) Albumin 3.8 g/dL (3.4-5.0) Albumin/Globulin Ratio 1.2 (1.0-1.7) Triglycerides Level 114 mg/dL (0-150) Cholesterol Level 128 mg/dL (0-200) LDL Cholesterol, Calculated 69 mg/dL (0-100) VLDL Cholesterol, Calculated 22 mg/dL (0-40) Non-HDL Cholesterol Calculated 91 mg/dL (0-129) HDL Cholesterol 37 mg/dL (40-60) Cholesterol/HDL Ratio 3.0 Vitamin B12 Level 409 pg/mL (247-911) 25-Hydroxy Vitamin D Total 40.2 ng/mL (30-100) Thyroid Stimulating Hormone (TSH) 2.209 uIU/mL (0.358-3.740) Thyroxine (T4) 7.7 ug/dL (4.5-12.0) Total Triiodothyronine 94 ng/dL (71-180) Treponema pallidum Antibody Nonreactive (Nonreactive) Assessment/Plan Worsening dementia and depression: Psychiatric care per Gastroesophageal reflux disease: Symptoms controlled with Protonix and Tums Constipation: Normal bowel movement on the day of exam History of kidney stones: No evidence of recurrence at this time Status post cholecystectomy Thank you Dr. Alvarez for allowing me to participate in the care of your patient. Will follow along and offer treatments as necessary. AMEE MCGUIRE DO Apr 07, 2018 07:47
[2018-04-07] MEDS: MULTIVITAMIN with MINERAL TABLET. PO SCH (09:14)
[2018-04-07] MEDS: POLYETHYLENE GLYCOL 3350 17 GM PACKET. PO SCH (09:14)
[2018-04-07] MEDS: LACTOBACILLUS RHAMNOSUS GG 1 CAPSULE. PO SCH (09:14)
[2018-04-07] MEDS: DOCUSATE SODIUM 100 MG CAPSULE PO SCH ×2 (09:14→19:33)
[2018-04-07] MEDS: PANTOPRAZOLE 40 MG TABLET. PO SCH (09:14)
[2018-04-07 16:09] VITALS: BP 103/68
[2018-04-07] MEDS: MELATONIN 3 MG TABLET PO SCH (19:33)
[2018-04-07] MEDS: MIRTAZAPINE 30 MG TABLET PO SCH (19:33)
--- NOTE | 2018-04-07 20:21 | PDOC ---
Exam Note: Lopez Note: Please also refer to the separate dictated note~for this date of service dictated separately.~Patient seen individually. Discussed the patient with Nursing staff reviewed the chart.~Reviewed interim history and current functioning. Reviewed vital signs,~Labs/ Radiology~and current medications noted below. Continue current treatment with the changes noted in the dictated addendum note Assessment: Vital Signs: Vital Signs Date Time Temp Pulse Resp B/P (MAP) Pulse Ox O2 Delivery O2 Flow Rate FiO2 04/07/18 16:09 98.0 86 18 103/68 (80) 96 Room Air I&O Intake and Output 04/07/18 06:59 Intake Total 1200 ml Balance 1200 ml Intake Oral 1200 ml # Voids 1 Current Medications: Meds: Current Medications Acetaminophen (Tylenol) 650 mg PRN Q6HRS PRN PO PAIN / TEMP; Start 04/05/18 at 17:45 Multi-Ingredient Ointment (Analgesic [place]) 1 danica PRN QID PRN TP MUSCLE PAIN; Start 04/05/18 at 17:45 Al Hydroxide/Mg Hydroxide (Mylanta Plus Xs) 15 ml PRN AFTMEALHC PRN PO DYSPEPSIA Last administered on 04/07/18at 02:11; Start 04/05/18 at 17:45 Magnesium Hydroxide (Milk Of Magnesia) 2,400 mg PRN QHS PRN PO CONSTIPATION; Start 04/05/18 at 17:45 Calcium Carbonate/ Glycine (Tums) 500 mg PRN AFTMEALHC PRN PO INDIGESTION Last administered on 04/07/18at 03:13; Start 04/05/18 at 18:30 Mirtazapine (Remeron) 30 mg QHS PO Last administered on 04/07/18at 19:33; Start 04/05/18 at 21:00 Docusate Sodium (Colace) 100 mg BID PO Last administered on 04/07/18at 19:33; Start 04/05/18 at 21:00 Lactobacillus Rhamnosus (Culturelle) 1 cap DAILY PO Last administered on at 09:14; Start 04/06/18 at 09:00 Melatonin 3 mg HS PO Last administered on 04/07/18at 19:33; Start 04/05/18 at 21 :00 Multivitamins/ Calcium (Thera-M Plus) 1 tab DAILY PO Last administered on 09:14; Start 04/06/18 at 09:00 Pantoprazole Sodium (Protonix) 40 mg DAILY PO Last administered on 04/07/18 09 :14; Start 04/06/18 at 09:00 Polyethylene Glycol (miraLAX) 17 gm DAILY PO Last administered on 04/07/18 09: 14; Start 04/06/18 at 09:00 Trazodone HCl (Desyrel) 50 mg PRN QHS PRN PO INSOMNIA Last administered on 04/07 19:39; Start 04/06/18 at 00:15 Olanzapine (ZyPREXA) 2.5 mg PRN Q24HRS PRN PO PSYCHOSIS; Start 04/06/18 at 14: 45; Stop 04/06/18 at 14:59; Status DC Olanzapine (ZyPREXA) 2.5 mg PRN Q2HR PRN PO ANXIETY/PSYCHOSIS Last administered on 04/06/18 17:41; Start 04/06/18 at 15:00 Active Scripts Active Calcium Carbonate 200 Mg Tab.chew 500 Mg PO PRN AFTMEALHC PRN 30 Days Reported Miralax (Polyethylene Glycol 3350) 17 Gm Powd.pack 1 Packet PO DAILY LAST DOSE GIVEN: DATE: TIME: NEXT DOSE DUE: DATE: TIME: Melatonin 3 Mg Tablet 1 Mg PO HS Mirtazapine 30 Mg Tablet 1 Tab PO QHS Docusate Sodium 100 Mg Capsule 1 Cap PO BID Probiotic (Lactobacillus Acidophilus) 1 Each Capsule 1 Each PO DAILY Multivitamins (Multivitamin) 1 Each Tablet 1 Tab PO DAILY Omeprazole 20 Mg Tablet. 1 Tab PO DAILY Clonazepam 1 Mg Tablet 1 Tab PO QHS I have reviewed the current psychotropics carefully including drug interactions. Risk benefit ratio favors no change other than as noted in my dictated progress note. 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
--- NOTE | 2018-04-07 21:20 | PDOC ---
Exam Note: Lopez Note: Late entry for DOS April 06, 2018. Please also refer to the separate dictated note~for this date of service dictated separately.~Patient seen individually. Discussed the patient with Nursing staff reviewed the chart.~Reviewed interim history and current functioning. Reviewed vital signs,~Labs/ Radiology~and current medications noted below. Continue current treatment with the changes noted in the dictated addendum note Assessment: Vital Signs: VS - Last 72 Hours, by Label Date Time Temp Pulse Resp B/P (MAP) Pulse Ox O2 Delivery O2 Flow Rate FiO2 04/07/18 16:09 98.0 86 18 103/68 (80) 96 Room Air 04/07/18 06:15 97.4 93 20 106/67 (80) 96 04/06/18 16:19 98.0 93 22 167/90 (115) 95 04/06/18 05:46 98.6 84 16 135/75 (95) 97 Room Air 04/06/18 00:27 79 18 135/90 (105) 90 Room Air 04/05/18 16:18 97.3 71 16 144/77 (99) 96 Room Air Vital Signs Date Time Temp Pulse Resp B/P (MAP) Pulse Ox O2 Delivery O2 Flow Rate FiO2 04/07/18 16:09 98.0 86 18 103/68 (80) 96 Room Air I&O Intake and Output 04/07/18 06:59 Intake Total 1200 ml Balance 1200 ml Intake Oral 1200 ml # Voids 1 Current Medications: Meds: Current Medications Acetaminophen (Tylenol) 650 mg PRN Q6HRS PRN PO PAIN / TEMP; Start 04/05/18 at 17:45 Multi-Ingredient Ointment (Analgesic [place]) 1 danica PRN QID PRN TP MUSCLE PAIN; Start 04/05/18 at 17:45 Al Hydroxide/Mg Hydroxide (Mylanta Plus Xs) 15 ml PRN AFTMEALHC PRN PO DYSPEPSIA Last administered on 04/07/18at 02:11; Start 04/05/18 at 17:45 Magnesium Hydroxide (Milk Of Magnesia) 2,400 mg PRN QHS PRN PO CONSTIPATION; Start 04/05/18 at 17:45 Calcium Carbonate/ Glycine (Tums) 500 mg PRN AFTMEALHC PRN PO INDIGESTION Last administered on 04/07/18at 03:13; Start 04/05/18 at 18:30 Mirtazapine (Remeron) 30 mg QHS PO Last administered on 04/07/18 19:33; Start 04/05/18 at 21:00 Docusate Sodium (Colace) 100 mg BID PO Last administered on 04/07/18 19:33; Start 04/05/18 at 21:00 Lactobacillus Rhamnosus (Culturelle) 1 cap DAILY PO Last administered on 09:14; Start 04/06/18 at 09:00 Melatonin 3 mg HS PO Last administered on 04/07/18 19:33; Start 04/05/18 at 21 :00 Multivitamins/ Calcium (Thera-M Plus) 1 tab DAILY PO Last administered on 09:14; Start 04/06/18 at 09:00 Pantoprazole Sodium (Protonix) 40 mg DAILY PO Last administered on 04/07/18 09 :14; Start 04/06/18 at 09:00 Polyethylene Glycol (miraLAX) 17 gm DAILY PO Last administered on 04/07/18at 09: 14; Start 04/06/18 at 09:00 Trazodone HCl (Desyrel) 50 mg PRN QHS PRN PO INSOMNIA Last administered on 04/07 19:39; Start 04/06/18 at 00:15 Olanzapine (ZyPREXA) 2.5 mg PRN Q24HRS PRN PO PSYCHOSIS; Start 04/06/18 at 14: 45; Stop 04/06/18 at 14:59; Status DC Olanzapine (ZyPREXA) 2.5 mg PRN Q2HR PRN PO ANXIETY/PSYCHOSIS Last administered on 04/06/18at 17:41; Start 04/06/18 at 15:00 Active Scripts Active Calcium Carbonate 200 Mg Tab.chew 500 Mg PO PRN AFTMEALHC PRN 30 Days Reported Miralax (Polyethylene Glycol 3350) 17 Gm Powd.pack 1 Packet PO DAILY LAST DOSE GIVEN: DATE: TIME: NEXT DOSE DUE: DATE: TIME: Melatonin 3 Mg Tablet 1 Mg PO HS Mirtazapine 30 Mg Tablet 1 Tab PO QHS Docusate Sodium 100 Mg Capsule 1 Cap PO BID Probiotic (Lactobacillus Acidophilus) 1 Each Capsule 1 Each PO DAILY Multivitamins (Multivitamin) 1 Each Tablet 1 Tab PO DAILY Omeprazole 20 Mg Tablet. 1 Tab PO DAILY Clonazepam 1 Mg Tablet 1 Tab PO QHS I have reviewed the current psychotropics carefully including drug interactions. Risk benefit ratio favors no change other than as noted in my dictated progress note. 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
--- NOTE | 2018-04-07 22:14 | PN ---
DATE: 04/06/2018 PSYCHIATRIC PROGRESS NOTE This is a late entry 04/06/2018, covers elements not covered in my initial note. SUBJECTIVE: I met with the patient in the evening. The patient slept 3-3/4 hours previous night. He had a bowel movement, remains anxious, confused. REVIEW OF SYSTEMS: No CV, , pulmonary, eye, ENT system symptoms on review. Reliability poor. MENTAL STATUS EXAM: Oriented to himself. Insight, judgment, recent and remote memory, attention, concentration, fund of knowledge poor, consistent with his diagnosis. Mood and affect somewhat withdrawn, but appropriate, pleasant, smiling as I met with him. LABORATORY DATA: Reviewed. IMPRESSION: Major neurocognitive disorder, Alzheimer, vascular with depression, delusion, behavioral disturbance. Rest unchanged. PLAN: No change from initial note. We will meet with his decide on further treatment plan, disposition, placement options. RADHA MILLER MD DR: ALAN/thomas JOB#: [id number] / [id number]
[2018-04-08] MEDS: traZODone 50 MG TABLET. PO PRN ×2 (00:23→20:02)
--- NOTE | 2018-04-08 01:23 | PDOC ---
Exam Note: Lopez Note: Please also refer to the separate dictated note~for this date of service dictated separately.~Patient seen individually. Discussed the patient with Nursing staff reviewed the chart.~Reviewed interim history and current functioning. Reviewed vital signs,~Labs/ Radiology~and current medications noted below. Continue current treatment with the changes noted in the dictated addendum note Assessment: Vital Signs: Vital Signs Date Time Temp Pulse Resp B/P (MAP) Pulse Ox O2 Delivery O2 Flow Rate FiO2 04/07/18 16:09 98.0 86 18 103/68 (80) 96 Room Air I&O Intake and Output 04/08/18 07:00 Intake Total 960 ml Balance 960 ml Intake Oral 960 ml # Voids 1 Current Medications: Meds: Current Medications Acetaminophen (Tylenol) 650 mg PRN Q6HRS PRN PO PAIN / TEMP; Start 04/05/18 at 17:45 Multi-Ingredient Ointment (Analgesic [place]) 1 danica PRN QID PRN TP MUSCLE PAIN; Start 04/05/18 at 17:45 Al Hydroxide/Mg Hydroxide (Mylanta Plus Xs) 15 ml PRN AFTMEALHC PRN PO DYSPEPSIA Last administered on 04/07/18at 02:11; Start 04/05/18 at 17:45 Magnesium Hydroxide (Milk Of Magnesia) 2,400 mg PRN QHS PRN PO CONSTIPATION; Start 04/05/18 at 17:45 Calcium Carbonate/ Glycine (Tums) 500 mg PRN AFTMEALHC PRN PO INDIGESTION Last administered on 04/07/18at 03:13; Start 04/05/18 at 18:30 Mirtazapine (Remeron) 30 mg QHS PO Last administered on 04/07/18at 19:33; Start 04/05/18 at 21:00 Docusate Sodium (Colace) 100 mg BID PO Last administered on 04/07/18 19:33; Start 04/05/18 at 21:00 Lactobacillus Rhamnosus (Culturelle) 1 cap DAILY PO Last administered on at 09:14; Start 04/06/18 at 09:00 Melatonin 3 mg HS PO Last administered on 04/07/18 19:33; Start 04/05/18 at 21 :00 Multivitamins/ Calcium (Thera-M Plus) 1 tab DAILY PO Last administered on at 09:14; Start 04/06/18 at 09:00 Pantoprazole Sodium (Protonix) 40 mg DAILY PO Last administered on 04/07/18at 09 :14; Start 04/06/18 at 09:00 Polyethylene Glycol (miraLAX) 17 gm DAILY PO Last administered on 04/07/18at 09: 14; Start 04/06/18 at 09:00 Trazodone HCl (Desyrel) 50 mg PRN QHS PRN PO INSOMNIA Last administered on 04/08at 00:23; Start 04/06/18 at 00:15 Olanzapine (ZyPREXA) 2.5 mg PRN Q24HRS PRN PO PSYCHOSIS; Start 04/06/18 at 14: 45; Stop 04/06/18 at 14:59; Status DC Olanzapine (ZyPREXA) 2.5 mg PRN Q2HR PRN PO ANXIETY/PSYCHOSIS Last administered on 04/06/18at 17:41; Start 04/06/18 at 15:00 Active Scripts Active Calcium Carbonate 200 Mg Tab.chew 500 Mg PO PRN AFTMEALHC PRN 30 Days Reported Miralax (Polyethylene Glycol 3350) 17 Gm Powd.pack 1 Packet PO DAILY LAST DOSE GIVEN: DATE: TIME: NEXT DOSE DUE: DATE: TIME: Melatonin 3 Mg Tablet 1 Mg PO HS Mirtazapine 30 Mg Tablet 1 Tab PO QHS Docusate Sodium 100 Mg Capsule 1 Cap PO BID Probiotic (Lactobacillus Acidophilus) 1 Each Capsule 1 Each PO DAILY Multivitamins (Multivitamin) 1 Each Tablet 1 Tab PO DAILY Omeprazole 20 Mg Tablet. 1 Tab PO DAILY Clonazepam 1 Mg Tablet 1 Tab PO QHS I have reviewed the current psychotropics carefully including drug interactions. Risk benefit ratio favors no change other than as noted in my dictated progress note. 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
[2018-04-08] MEDS: CALCIUM CARBONATE 500 MG TAB.CHEW PO PRN (04:46)
[2018-04-08 06:03] VITALS: BP 140/72
[2018-04-08] MEDS: DOCUSATE SODIUM 100 MG CAPSULE PO SCH ×2 (07:30→20:02)
[2018-04-08] MEDS: POLYETHYLENE GLYCOL 3350 17 GM PACKET. PO SCH (07:30)
[2018-04-08] MEDS: MULTIVITAMIN with MINERAL TABLET. PO SCH (07:31)
[2018-04-08] MEDS: PANTOPRAZOLE 40 MG TABLET. PO SCH (07:31)
[2018-04-08] MEDS: LACTOBACILLUS RHAMNOSUS GG 1 CAPSULE. PO SCH (07:31)
[2018-04-08] MEDS: OLANZapine 2.5 MG TABLET PO PRN (08:44)
--- NOTE | 2018-04-08 12:57 | PN ---
DATE: 04/07/2018 PSYCHIATRIC PROGRESS NOTE This is a late entry, 04/07, covers elements not covered in my initial note. SUBJECTIVE: I met with the patient in the evening, staffed at treatment team meeting with the entire team in the morning and the patient's 2 nieces attended the lengthy treatment team meeting. Reviewed the patient's diagnosis, progress, placement options, current psychotropics, answered their questions. They have been very supportive of the patient, but it is time that he is unable to [place] alone [place] most of his [place]. This is a difficult decision, but appropriate given the circumstances. 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 REVIEW OF SYSTEMS: No CV, , pulmonary, eye, ENT system symptoms on review. MENTAL STATUS EXAM: Oriented to himself. Insight, judgment, recent and remote memory, attention, concentration, fund of knowledge poor, consistent with his diagnosis mentioned in my initial note. IMPRESSION: Major neurocognitive disorder, Alzheimer, vascular with delusion, depression, behavioral disturbance. Rest unchanged. PLAN: No change from initial note. Klonopin has been reduced. We will reduce it further in a day or so to prevent benzodiazepine withdrawal. Maintain Remeron along with Zyprexa p.r.n. RADHA MILLER MD DR: ALAN/thomas JOB#: [id number] / [id number]
[2018-04-08] MEDS ORDERED: OLAN5TAB5 PO (15:19)
[2018-04-08 15:59] VITALS: BP 125/71
[2018-04-08] MEDS: MELATONIN 3 MG TABLET PO SCH (20:02)
[2018-04-08] MEDS: MIRTAZAPINE 15 MG TABLET PO SCH (20:05)
--- NOTE | 2018-04-08 20:26 | PDOC ---
Exam Note: Lopez Note: Please also refer to the separate dictated note~for this date of service dictated separately.~Patient seen individually. Discussed the patient with Nursing staff reviewed the chart.~Reviewed interim history and current functioning. Reviewed vital signs,~Labs/ Radiology~and current medications noted below. Continue current treatment with the changes noted in the dictated addendum note Assessment: Vital Signs: Vital Signs Date Time Temp Pulse Resp B/P (MAP) Pulse Ox O2 Delivery O2 Flow Rate FiO2 04/08/18 15:59 97.4 81 17 125/71 (89) 97 Room Air I&O Intake and Output 04/08/18 06:59 Intake Total 960 ml Balance 960 ml Intake Oral 960 ml # Voids 1 Current Medications: Meds: Current Medications Acetaminophen (Tylenol) 650 mg PRN Q6HRS PRN PO PAIN / TEMP; Start 04/05/18 at 17:45 Multi-Ingredient Ointment (Analgesic [place]) 1 danica PRN QID PRN TP MUSCLE PAIN; Start 04/05/18 at 17:45 Al Hydroxide/Mg Hydroxide (Mylanta Plus Xs) 15 ml PRN AFTMEALHC PRN PO DYSPEPSIA Last administered on 04/07/18at 02:11; Start 04/05/18 at 17:45 Magnesium Hydroxide (Milk Of Magnesia) 2,400 mg PRN QHS PRN PO CONSTIPATION; Start 04/05/18 at 17:45 Calcium Carbonate/ Glycine (Tums) 500 mg PRN AFTMEALHC PRN PO INDIGESTION Last administered on 04/08/18at 04:46; Start 04/05/18 at 18:30 Mirtazapine (Remeron) 30 mg QHS PO Last administered on 04/07/18at 19:33; Start 04/05/18 at 21:00; Stop 04/08/18 at 16:58; Status DC Docusate Sodium (Colace) 100 mg BID PO Last administered on 04/08/18at 20:02; Start 04/05/18 at 21:00 Lactobacillus Rhamnosus (Culturelle) 1 cap DAILY PO Last administered on at 07:31; Start 04/06/18 at 09:00 Melatonin 3 mg HS PO Last administered on 04/08/18at 20:02; Start 04/05/18 at 21 :00 Multivitamins/ Calcium (Thera-M Plus) 1 tab DAILY PO Last administered on at 07:31; Start 04/06/18 at 09:00 Pantoprazole Sodium (Protonix) 40 mg DAILY PO Last administered on 04/08/18at 07 :31; Start 04/06/18 at 09:00 Polyethylene Glycol (miraLAX) 17 gm DAILY PO Last administered on 04/08/18at 07: 30; Start 04/06/18 at 09:00 Trazodone HCl (Desyrel) 50 mg PRN QHS PRN PO INSOMNIA Last administered on 04/08at 00:23; Start 04/06/18 at 00:15; Stop 04/08/18 at 16:58; Status DC Olanzapine (ZyPREXA) 2.5 mg PRN Q24HRS PRN PO PSYCHOSIS; Start 04/06/18 at 14: 45; Stop 04/06/18 at 14:59; Status DC Olanzapine (ZyPREXA) 2.5 mg PRN Q2HR PRN PO ANXIETY/PSYCHOSIS Last administered on 04/08/18at 08:44; Start 04/06/18 at 15:00; Stop 04/08/18 at 15:23 ; Status DC Olanzapine (ZyPREXA ZYDIS) 2.5 mg PRN Q2HR PRN PO PSYCHOSIS Last administered on 04/08/18at 18:00; Start 04/08/18 at 15:30 Mirtazapine (Remeron) 15 mg QHS PO Last administered on 04/08/18at 20:05; Start 04/08/18 at 21:00 Trazodone HCl (Desyrel) 100 mg PRN QHS PRN PO INSOMNIA, MAY REPEAT X1 Last administered on 04/08/18at 20:02; Start 04/08/18 at 17:00 Famotidine (Pepcid) 20 mg DAILY PO ; Start 04/09/18 at 09:00 Sertraline HCl (Zoloft) 25 mg DAILY PO ; Start 04/09/18 at 09:00 Active Scripts Active Calcium Carbonate 200 Mg Tab.chew 500 Mg PO PRN AFTMEALHC PRN 30 Days Reported Zyprexa Zydis (Olanzapine) 5 Mg Tab.rapdis 2.5 Mg PO PRN Q2HR PRN Miralax (Polyethylene Glycol 3350) 17 Gm Powd.pack 1 Packet PO DAILY LAST DOSE GIVEN: DATE: TIME: NEXT DOSE DUE: DATE: TIME: Melatonin 3 Mg Tablet 1 Mg PO HS Mirtazapine 30 Mg Tablet 1 Tab PO QHS Docusate Sodium 100 Mg Capsule 1 Cap PO BID Probiotic (Lactobacillus Acidophilus) 1 Each Capsule 1 Each PO DAILY Multivitamins (Multivitamin) 1 Each Tablet 1 Tab PO DAILY Omeprazole 20 Mg Tablet.dr 1 Tab PO DAILY Clonazepam 1 Mg Tablet 1 Tab PO QHS I have reviewed the current psychotropics carefully including drug interactions. Risk benefit ratio favors no change other than as noted in my dictated progress note. Diagnosis: Problems: (1) Anxiety disorder (2) Impulse control disorder (3) Altered mental status (4) Dementia, vascular, with depression (5) Dementia in Alzheimer's disease with depression (6) Anxiety disorder (7) Major depressive disorder, recurrent episode RADHA MILLER MD Apr 08, 2018 20:26
[2018-04-09] MEDS: traZODone 50 MG TABLET. PO PRN ×3 (00:14→21:55)
[2018-04-09 06:00] VITALS: BP 136/70
[2018-04-09] MEDS: PANTOPRAZOLE 40 MG TABLET. PO SCH (08:31)
[2018-04-09] MEDS: POLYETHYLENE GLYCOL 3350 17 GM PACKET. PO SCH (08:31)
[2018-04-09] MEDS: LACTOBACILLUS RHAMNOSUS GG 1 CAPSULE. PO SCH (08:31)
[2018-04-09] MEDS: MULTIVITAMIN with MINERAL TABLET. PO SCH (08:31)
[2018-04-09] MEDS: DOCUSATE SODIUM 100 MG CAPSULE PO SCH ×2 (08:31→20:00)
[2018-04-09] MEDS: SERTRALINE 25 MG TABLET. PO SCH (08:33)
[2018-04-09] MEDS: FAMOTIDINE 20 MG TABLET PO SCH (08:33)
[2018-04-09] MEDS: hydrOXYzine HCL 25 MG TABLET PO PRN ×2 (13:32→17:50)
[2018-04-09 16:30] VITALS: BP 134/80
[2018-04-09] MEDS: MELATONIN 3 MG TABLET PO SCH (20:00)
[2018-04-09] MEDS: MIRTAZAPINE 15 MG TABLET PO SCH (20:00)
[2018-04-09] MEDS: clonazePAM 0.5 MG TABLET PO SCH (20:01)
--- NOTE | 2018-04-09 22:18 | PDOC ---
Exam Note: Lopez Note: Please also refer to the separate dictated note~for this date of service dictated separately.~Patient seen individually. Discussed the patient with Nursing staff reviewed the chart.~Reviewed interim history and current functioning. Reviewed vital signs,~Labs/ Radiology~and current medications noted below. Continue current treatment with the changes noted in the dictated addendum note Assessment: Vital Signs: Vital Signs Date Time Temp Pulse Resp B/P (MAP) Pulse Ox O2 Delivery O2 Flow Rate FiO2 04/09/18 16:30 97.8 122 18 134/80 (98) 94 04/08/18 15:59 Room Air I&O Intake and Output 04/09/18 07:00 Intake Total 720 ml Balance 720 ml Intake Oral 720 ml # Voids 1 Current Medications: Meds: Current Medications Acetaminophen (Tylenol) 650 mg PRN Q6HRS PRN PO PAIN / TEMP; Start 04/05/18 at 17:45 Multi-Ingredient Ointment (Analgesic [place]) 1 danica PRN QID PRN TP MUSCLE PAIN; Start 04/05/18 at 17:45 Al Hydroxide/Mg Hydroxide (Mylanta Plus Xs) 15 ml PRN AFTMEALHC PRN PO DYSPEPSIA Last administered on 04/07/18at 02:11; Start 04/05/18 at 17:45 Magnesium Hydroxide (Milk Of Magnesia) 2,400 mg PRN QHS PRN PO CONSTIPATION Last administered on 04/09/18at 17:50; Start 04/05/18 at 17:45 Calcium Carbonate/ Glycine (Tums) 500 mg PRN AFTMEALHC PRN PO INDIGESTION Last administered on 04/08/18at 04:46; Start 04/05/18 at 18:30 Mirtazapine (Remeron) 30 mg QHS PO Last administered on 04/07/18at 19:33; Start 04/05/18 at 21:00; Stop 04/08/18 at 16:58; Status DC Docusate Sodium (Colace) 100 mg BID PO Last administered on 04/09/18at 20:00; Start 04/05/18 at 21:00 Lactobacillus Rhamnosus (Culturelle) 1 cap DAILY PO Last administered on at 08:31; Start 04/06/18 at 09:00 Melatonin 3 mg HS PO Last administered on 8/18/18at 20:00; Start 04/05/18 at 21 :00 Multivitamins/ Calcium (Thera-M Plus) 1 tab DAILY PO Last administered on 08:31; Start 04/06/18 at 09:00 Pantoprazole Sodium (Protonix) 40 mg DAILY PO Last administered on 04/09/18 08 :31; Start 04/06/18 at 09:00 Polyethylene Glycol (miraLAX) 17 gm DAILY PO Last administered on 04/09/18 08: 31; Start 04/06/18 at 09:00 Trazodone HCl (Desyrel) 50 mg PRN QHS PRN PO INSOMNIA Last administered on 04/08 00:23; Start 04/06/18 at 00:15; Stop 04/08/18 at 16:58; Status DC Olanzapine (ZyPREXA) 2.5 mg PRN Q24HRS PRN PO PSYCHOSIS; Start 04/06/18 at 14: 45; Stop 04/06/18 at 14:59; Status DC Olanzapine (ZyPREXA) 2.5 mg PRN Q2HR PRN PO ANXIETY/PSYCHOSIS Last administered on 04/08/18at 08:44; Start 04/06/18 at 15:00; Stop 04/08/18 at 15:23 ; Status DC Olanzapine (ZyPREXA ZYDIS) 2.5 mg PRN Q2HR PRN PO PSYCHOSIS Last administered on 04/09/18 08:33; Start 04/08/18 at 15:30 Mirtazapine (Remeron) 15 mg QHS PO Last administered on 04/09/18at 20:00; Start 04/08/18 at 21:00 Trazodone HCl (Desyrel) 100 mg PRN QHS PRN PO INSOMNIA, MAY REPEAT X1 Last administered on 04/09/18at 21:55; Start 04/08/18 at 17:00 Famotidine (Pepcid) 20 mg DAILY PO Last administered on 04/09/18 08:33; Start 04/09/18 at 09:00 Sertraline HCl (Zoloft) 25 mg DAILY PO Last administered on 04/09/18at 08:33; Start 04/09/18 at 09:00 Clonazepam (KlonoPIN) 0.5 mg HS PO Last administered on 04/09/18at 20:01; Start 04/09/18 at 21:00; Stop 04/11/18 at 23:00 Clonazepam (KlonoPIN) 0.25 mg HS PO ; Start 04/14/18 at 21:00; Stop 04/16/18 at 21:01 Hydroxyzine HCl (Atarax) 25 mg PRN Q4HRS PRN PO ANXIETY / AGITATION Last administered on 04/09/18at 17:50; Start 04/09/18 at 10:45 Active Scripts Active Calcium Carbonate 200 Mg Tab.chew 500 Mg PO PRN AFTMEALHC PRN 30 Days Reported Zyprexa Zydis (Olanzapine) 5 Mg Tab.rapdis 2.5 Mg PO PRN Q2HR PRN Miralax (Polyethylene Glycol 3350) 17 Gm Powd.pack 1 Packet PO DAILY LAST DOSE GIVEN: DATE: TIME: NEXT DOSE DUE: DATE: TIME: Melatonin 3 Mg Tablet 1 Mg PO HS Mirtazapine 30 Mg Tablet 1 Tab PO QHS Docusate Sodium 100 Mg Capsule 1 Cap PO BID Probiotic (Lactobacillus Acidophilus) 1 Each Capsule 1 Each PO DAILY Multivitamins (Multivitamin) 1 Each Tablet 1 Tab PO DAILY Omeprazole 20 Mg Tablet.dr 1 Tab PO DAILY Clonazepam 1 Mg Tablet 1 Tab PO QHS I have reviewed the current psychotropics carefully including drug interactions. Risk benefit ratio favors no change other than as noted in my dictated progress note. Diagnosis: Problems: (1) Anxiety disorder (2) Impulse control disorder (3) Altered mental status (4) Dementia, vascular, with depression (5) Dementia in Alzheimer's disease with depression (6) Anxiety disorder (7) Major depressive disorder, recurrent episode RADHA MILLER MD Apr 09, 2018 22:18
[2018-04-10 06:14] VITALS: BP 120/73
[2018-04-10] MEDS: PANTOPRAZOLE 40 MG TABLET. PO SCH (07:48)
[2018-04-10] MEDS: MULTIVITAMIN with MINERAL TABLET. PO SCH (07:48)
[2018-04-10] MEDS: SERTRALINE 25 MG TABLET. PO SCH (07:48)
[2018-04-10] MEDS: DOCUSATE SODIUM 100 MG CAPSULE PO SCH ×2 (07:48→20:28)
[2018-04-10] MEDS: FAMOTIDINE 20 MG TABLET PO SCH (07:48)
[2018-04-10] MEDS: POLYETHYLENE GLYCOL 3350 17 GM PACKET. PO SCH (07:48)
[2018-04-10] MEDS: LACTOBACILLUS RHAMNOSUS GG 1 CAPSULE. PO SCH (07:48)
[2018-04-10 16:27] VITALS: BP 129/70
[2018-04-10] MEDS: clonazePAM 0.5 MG TABLET PO SCH (20:28)
[2018-04-10] MEDS: MIRTAZAPINE 15 MG TABLET PO SCH (20:28)
[2018-04-10] MEDS: MELATONIN 3 MG TABLET PO SCH (20:30)
[2018-04-10] MEDS: traZODone 50 MG TABLET. PO PRN (20:30)
--- NOTE | 2018-04-10 20:55 | PDOC ---
Exam Note: Lopez Note: Please also refer to the separate dictated note~for this date of service dictated separately.~Patient seen individually. Discussed the patient with Nursing staff reviewed the chart.~Reviewed interim history and current functioning. Reviewed vital signs,~Labs/ Radiology~and current medications noted below. Continue current treatment with the changes noted in the dictated addendum note Assessment: Vital Signs: Vital Signs Date Time Temp Pulse Resp B/P (MAP) Pulse Ox O2 Delivery O2 Flow Rate FiO2 04/10/18 16:27 97.1 82 20 129/70 (89) 97 Room Air I&O Intake and Output 04/10/18 07:01 Intake Total 840 ml Balance 840 ml Intake Oral 840 ml # Voids 2 Current Medications: Meds: Current Medications Acetaminophen (Tylenol) 650 mg PRN Q6HRS PRN PO PAIN / TEMP; Start 04/05/18 at 17:45 Multi-Ingredient Ointment (Analgesic [place]) 1 danica PRN QID PRN TP MUSCLE PAIN; Start 04/05/18 at 17:45 Al Hydroxide/Mg Hydroxide (Mylanta Plus Xs) 15 ml PRN AFTMEALHC PRN PO DYSPEPSIA Last administered on 04/07/18at 02:11; Start 04/05/18 at 17:45 Magnesium Hydroxide (Milk Of Magnesia) 2,400 mg PRN QHS PRN PO CONSTIPATION Last administered on 04/09/18at 17:50; Start 04/05/18 at 17:45 Calcium Carbonate/ Glycine (Tums) 500 mg PRN AFTMEALHC PRN PO INDIGESTION Last administered on 04/08/18at 04:46; Start 04/05/18 at 18:30 Mirtazapine (Remeron) 30 mg QHS PO Last administered on 04/07/18at 19:33; Start 04/05/18 at 21:00; Stop 04/08/18 at 16:58; Status DC Docusate Sodium (Colace) 100 mg BID PO Last administered on 04/10/18at 20:28; Start 04/05/18 at 21:00 Lactobacillus Rhamnosus (Culturelle) 1 cap DAILY PO Last administered on at 07:48; Start 04/06/18 at 09:00 Melatonin 3 mg HS PO Last administered on 04/09/18at 20:00; Start 04/05/18 at 21 :00; Stop 04/10/18 at 18:16; Status DC Multivitamins/ Calcium (Thera-M Plus) 1 tab DAILY PO Last administered on at 07:48; Start 04/06/18 at 09:00 Pantoprazole Sodium (Protonix) 40 mg DAILY PO Last administered on 04/10/18at 07 :48; Start 04/06/18 at 09:00 Polyethylene Glycol (miraLAX) 17 gm DAILY PO Last administered on 04/10/18at 07: 48; Start 04/06/18 at 09:00 Trazodone HCl (Desyrel) 50 mg PRN QHS PRN PO INSOMNIA Last administered on 04/08at 00:23; Start 04/06/18 at 00:15; Stop 04/08/18 at 16:58; Status DC Olanzapine (ZyPREXA) 2.5 mg PRN Q24HRS PRN PO PSYCHOSIS; Start 04/06/18 at 14: 45; Stop 04/06/18 at 14:59; Status DC Olanzapine (ZyPREXA) 2.5 mg PRN Q2HR PRN PO ANXIETY/PSYCHOSIS Last administered on 04/08/18at 08:44; Start 04/06/18 at 15:00; Stop 04/08/18 at 15:23 ; Status DC Olanzapine (ZyPREXA ZYDIS) 2.5 mg PRN Q2HR PRN PO PSYCHOSIS Last administered on 04/10/18at 20:30; Start 04/08/18 at 15:30 Mirtazapine (Remeron) 15 mg QHS PO Last administered on 04/10/18at 20:28; Start 04/08/18 at 21:00 Trazodone HCl (Desyrel) 100 mg PRN QHS PRN PO INSOMNIA, MAY REPEAT X1 Last administered on 04/10/18at 20:30; Start 04/08/18 at 17:00 Famotidine (Pepcid) 20 mg DAILY PO Last administered on 04/10/18at 07:48; Start 04/09/18 at 09:00 Sertraline HCl (Zoloft) 25 mg DAILY PO Last administered on 04/10/18at 07:48; Start 04/09/18 at 09:00 Clonazepam (KlonoPIN) 0.5 mg HS PO Last administered on 04/10/18at 20:28; Start 04/09/18 at 21:00; Stop 04/11/18 at 23:00 Clonazepam (KlonoPIN) 0.25 mg HS PO ; Start 04/14/18 at 21:00; Stop 04/16/18 at 21:01 Hydroxyzine HCl (Atarax) 25 mg PRN Q4HRS PRN PO ANXIETY / AGITATION Last administered on 04/09/18at 17:50; Start 04/09/18 at 10:45 Melatonin 6 mg HS PO Last administered on 04/10/18at 20:30; Start 04/10/18 at 21 :00 Active Scripts Active Calcium Carbonate 200 Mg Tab.chew 500 Mg PO PRN AFTMEALHC PRN 30 Days Reported Zyprexa Zydis (Olanzapine) 5 Mg Tab.rapdis 2.5 Mg PO PRN Q2HR PRN Miralax (Polyethylene Glycol 3350) 17 Gm Powd.pack 1 Packet PO DAILY LAST DOSE GIVEN: DATE: TIME: NEXT DOSE DUE: DATE: TIME: Melatonin 3 Mg Tablet 1 Mg PO HS Mirtazapine 30 Mg Tablet 1 Tab PO QHS Docusate Sodium 100 Mg Capsule 1 Cap PO BID Probiotic (Lactobacillus Acidophilus) 1 Each Capsule 1 Each PO DAILY Multivitamins (Multivitamin) 1 Each Tablet 1 Tab PO DAILY Omeprazole 20 Mg Tablet. 1 Tab PO DAILY Clonazepam 1 Mg Tablet 1 Tab PO QHS I have reviewed the current psychotropics carefully including drug interactions. Risk benefit ratio favors no change other than as noted in my dictated progress note. Diagnosis: Problems: (1) Anxiety disorder (2) Impulse control disorder (3) Altered mental status (4) Dementia, vascular, with depression (5) Dementia in Alzheimer's disease with depression (6) Anxiety disorder (7) Major depressive disorder, recurrent episode RADHA MILLER MD Apr 10, 2018 20:55
[2018-04-10 22:24] LABS: BILIRUBIN,URINE NEG (NEG); CLARITY,URINE HAZY; COLOR,URINE YELLOW; GLUCOSE,URINE NEG (NEG); NITRITE,URINE NEG (NEG); RBC,URINE OCC /HPF (0-2); UROBILINOGEN,URINE 0.2 mg/dL (0.2 mg/dL); WBC,URINE OCC /HPF (0-4)
[2018-04-10 22:25] LABS: AMORPHOUS SEDIMENT,UR PRESENT /HPF; BACTERIA,URINE FEW /HPF (0-FEW); HYALINE CASTS, URINE FEW /HPF; SQUAMOUS EPITHELIAL CELL,UR FEW /LPF
--- NOTE | 2018-04-10 22:26 | PN ---
DATE: 04/08/2018 PSYCHIATRIC PROGRESS NOTE This is a late entry 04/08/2018 covers elements not covered in my initial note. SUBJECTIVE: I met with the patient in the evening. Overall, the patient slept poorly the previous evening, remains restless, anxious, constantly moving, confused, has had some GI symptoms since he started Pepcid 20 mg at bedtime. REVIEW OF SYSTEMS: No CV, , pulmonary, eye system symptoms on review. Reliability poor. MENTAL STATUS EXAM: Oriented to himself. Insight, judgment, recent and remote memory, attention, concentration, fund of knowledge poor, consistent with his diagnosis mentioned in my initial note. PLAN: Reduce Remeron to 15 mg at bedtime, which should be more helpful at the lower dosage for the insomnia rather than the higher dosage, increase trazodone to 100 mg at bedtime, may repeat x 1. Start Zoloft 25 mg a day for mood, anxiety symptoms. Rest unchanged from initial note. MAN Berta MILLER MD DR: ALAN/thomas JOB#: [id number] / [id number]
[2018-04-11 05:59] VITALS: BP 100/58
[2018-04-11] MEDS: PANTOPRAZOLE 40 MG TABLET. PO SCH (08:50)
[2018-04-11] MEDS: LACTOBACILLUS RHAMNOSUS GG 1 CAPSULE. PO SCH (08:50)
[2018-04-11] MEDS: DOCUSATE SODIUM 100 MG CAPSULE PO SCH ×2 (08:50→20:46)
[2018-04-11] MEDS: MULTIVITAMIN with MINERAL TABLET. PO SCH (08:50)
[2018-04-11] MEDS: POLYETHYLENE GLYCOL 3350 17 GM PACKET. PO SCH (08:50)
[2018-04-11] MEDS: SERTRALINE 25 MG TABLET. PO SCH (08:50)
[2018-04-11] MEDS: FAMOTIDINE 20 MG TABLET PO SCH (08:50)
--- NOTE | 2018-04-11 13:02 | PN ---
DATE: 04/09/2018 PSYCHIATRIC PROGRESS NOTE This is a late entry, 04/09, covers elements not covered in my initial note. SUBJECTIVE: I met with the patient in the morning. Nursing staff had called me earlier. The patient has been extremely anxious and previous evening, he had difficulty sleeping, slept just 3-1/4 hours. Apparently, his Klonopin was totally discontinued when he came on our unit rather than being tapered as was the initial intention. We will restart Klonopin 0.5 mg, then taper it down gradually. REVIEW OF SYSTEMS: Hard of hearing. No CV, , pulmonary, eye system symptoms on review. MENTAL STATUS EXAM: Oriented to himself. Insight, judgment, recent and remote memory, attention, concentration, fund of knowledge poor, consistent with his diagnosis mentioned in my initial note. PLAN: No change from initial note other than what is noted above with the taper of the Klonopin. MAN Berta MILLER MD DR: ALAN/thomas JOB#: [id number] / [id number]
[2018-04-11 15:48] VITALS: BP 171/83
[2018-04-11] MEDS: MELATONIN 3 MG TABLET PO SCH (20:46)
[2018-04-11] MEDS: AMITRIPTYLINE HCL 25 MG TABLET PO SCH (20:49)
[2018-04-11] MEDS: clonazePAM 0.5 MG TABLET PO SCH (20:49)
[2018-04-11] MEDS: TAMSULOSIN 0.4 MG CAP.ER.24H. PO SCH (20:50)
--- NOTE | 2018-04-11 20:58 | PDOC ---
Exam Note: Lopez Note: Please also refer to the separate dictated note~for this date of service dictated separately.~Patient seen individually. Discussed the patient with Nursing staff reviewed the chart.~Reviewed interim history and current functioning. Reviewed vital signs,~Labs/ Radiology~and current medications noted below. Continue current treatment with the changes noted in the dictated addendum note Assessment: Vital Signs: Vital Signs Date Time Temp Pulse Resp B/P (MAP) Pulse Ox O2 Delivery O2 Flow Rate FiO2 04/11/18 15:48 97.4 102 20 171/83 (112) 96 04/10/18 16:27 Room Air I&O Intake and Output 04/11/18 07:01 Intake Total 840 ml Output Total 300 ml Balance 540 ml Intake Oral 840 ml Output Urine Total 300 ml # Voids 1 Current Medications: Meds: Current Medications Acetaminophen (Tylenol) 650 mg PRN Q6HRS PRN PO PAIN / TEMP; Start 04/05/18 at 17:45 Multi-Ingredient Ointment (Analgesic [place]) 1 danica PRN QID PRN TP MUSCLE PAIN; Start 04/05/18 at 17:45 Al Hydroxide/Mg Hydroxide (Mylanta Plus Xs) 15 ml PRN AFTMEALHC PRN PO DYSPEPSIA Last administered on 04/07/18at 02:11; Start 04/05/18 at 17:45 Magnesium Hydroxide (Milk Of Magnesia) 2,400 mg PRN QHS PRN PO CONSTIPATION Last administered on 04/09/18at 17:50; Start 04/05/18 at 17:45 Calcium Carbonate/ Glycine (Tums) 500 mg PRN AFTMEALHC PRN PO INDIGESTION Last administered on 04/08/18at 04:46; Start 04/05/18 at 18:30 Mirtazapine (Remeron) 30 mg QHS PO Last administered on 04/07/18at 19:33; Start 04/05/18 at 21:00; Stop 04/08/18 at 16:58; Status DC Docusate Sodium (Colace) 100 mg BID PO Last administered on 04/11/18at 20:46; Start 04/05/18 at 21:00 Lactobacillus Rhamnosus (Culturelle) 1 cap DAILY PO Last administered on at 08:50; Start 04/06/18 at 09:00 Melatonin 3 mg HS PO Last administered on 04/09/18at 20:00; Start 04/05/18 at 21 :00; Stop 04/10/18 at 18:16; Status DC Multivitamins/ Calcium (Thera-M Plus) 1 tab DAILY PO Last administered on 08:50; Start 04/06/18 at 09:00 Pantoprazole Sodium (Protonix) 40 mg DAILY PO Last administered on 04/11/18 08 :50; Start 04/06/18 at 09:00 Polyethylene Glycol (miraLAX) 17 gm DAILY PO Last administered on 04/11/18 08: 50; Start 04/06/18 at 09:00 Trazodone HCl (Desyrel) 50 mg PRN QHS PRN PO INSOMNIA Last administered on 04/08at 00:23; Start 04/06/18 at 00:15; Stop 04/08/18 at 16:58; Status DC Olanzapine (ZyPREXA) 2.5 mg PRN Q24HRS PRN PO PSYCHOSIS; Start 04/06/18 at 14: 45; Stop 04/06/18 at 14:59; Status DC Olanzapine (ZyPREXA) 2.5 mg PRN Q2HR PRN PO ANXIETY/PSYCHOSIS Last administered on 04/08/18at 08:44; Start 04/06/18 at 15:00; Stop 04/08/18 at 15:23 ; Status DC Olanzapine (ZyPREXA ZYDIS) 2.5 mg PRN Q2HR PRN PO PSYCHOSIS Last administered on 04/10/18at 20:30; Start 04/08/18 at 15:30 Mirtazapine (Remeron) 15 mg QHS PO Last administered on 04/10/18at 20:28; Start 04/08/18 at 21:00; Stop 04/11/18 at 17:43; Status DC Trazodone HCl (Desyrel) 100 mg PRN QHS PRN PO INSOMNIA, MAY REPEAT X1 Last administered on 04/10/18at 20:30; Start 04/08/18 at 17:00 Famotidine (Pepcid) 20 mg DAILY PO Last administered on 04/11/18at 08:50; Start 04/09/18 at 09:00 Sertraline HCl (Zoloft) 25 mg DAILY PO Last administered on 04/11/18 08:50; Start 04/09/18 at 09:00 Clonazepam (KlonoPIN) 0.5 mg HS PO Last administered on 04/11/18 20:49; Start 04/09/18 at 21:00; Stop 04/11/18 at 23:00 Clonazepam (KlonoPIN) 0.25 mg HS PO ; Start 04/14/18 at 21:00; Stop 04/16/18 at 21:01 Hydroxyzine HCl (Atarax) 25 mg PRN Q4HRS PRN PO ANXIETY / AGITATION Last administered on 04/09/18 17:50; Start 04/09/18 at 10:45 Melatonin 6 mg HS PO Last administered on 04/11/18at 20:46; Start 04/10/18 at 21 :00 Tamsulosin HCl (Flomax) 0.4 mg QHS PO Last administered on 04/11/18at 20:50; Start 04/11/18 at 21:00 Amitriptyline HCl (Elavil) 25 mg QHS PO Last administered on 04/11/18at 20:49; Start 04/11/18 at 21:00 Active Scripts Active Calcium Carbonate 200 Mg Tab.chew 500 Mg PO PRN AFTMEALHC PRN 30 Days Reported Zyprexa Zydis (Olanzapine) 5 Mg Tab.rapdis 2.5 Mg PO PRN Q2HR PRN Miralax (Polyethylene Glycol 3350) 17 Gm Powd.pack 1 Packet PO DAILY LAST DOSE GIVEN: DATE: TIME: NEXT DOSE DUE: DATE: TIME: Melatonin 3 Mg Tablet 1 Mg PO HS Mirtazapine 30 Mg Tablet 1 Tab PO QHS Docusate Sodium 100 Mg Capsule 1 Cap PO BID Probiotic (Lactobacillus Acidophilus) 1 Each Capsule 1 Each PO DAILY Multivitamins (Multivitamin) 1 Each Tablet 1 Tab PO DAILY Omeprazole 20 Mg Tablet.dr 1 Tab PO DAILY Clonazepam 1 Mg Tablet 1 Tab PO QHS I have reviewed the current psychotropics carefully including drug interactions. Risk benefit ratio favors no change other than as noted in my dictated progress note. Diagnosis: Problems: (1) Anxiety disorder (2) Impulse control disorder (3) Altered mental status (4) Dementia, vascular, with depression (5) Dementia in Alzheimer's disease with depression (6) Anxiety disorder (7) Major depressive disorder, recurrent episode PAUL,MAN M MD Apr 11, 2018 20:58
--- NOTE | 2018-04-11 23:23 | PN ---
DATE: 04/10/2018 PSYCHIATRIC PROGRESS NOTE This is a late entry, 04/10, covers elements not covered in my initial note. SUBJECTIVE: I met with the patient in the morning. The patient slept 3-1/4 hours previous night, remains anxious, but his tremors are better. REVIEW OF SYSTEMS: No CV, , pulmonary, eye, ENT system symptoms on review, slightly hard of hearing. Reliability poor. MENTAL STATUS EXAM: Oriented to himself. Insight, judgment, recent and remote memory, attention, concentration, fund of knowledge poor, consistent with his diagnosis mentioned in my initial note. PLAN: Increase melatonin to 6 mg at bedtime for his insomnia. Continue rest unchanged. Klonopin is being tapered. MAN Berat MILLER MD DR: ALAN/thomas JOB#: [id number] / [id number]
[2018-04-12 05:21] VITALS: BP 121/64
[2018-04-12] MEDS: SERTRALINE 25 MG TABLET. PO SCH (11:31)
[2018-04-12] MEDS: MULTIVITAMIN with MINERAL TABLET. PO SCH (11:31)
[2018-04-12] MEDS: PANTOPRAZOLE 40 MG TABLET. PO SCH (11:31)
[2018-04-12] MEDS: LACTOBACILLUS RHAMNOSUS GG 1 CAPSULE. PO SCH (11:31)
[2018-04-12] MEDS: FAMOTIDINE 20 MG TABLET PO SCH (11:31)
[2018-04-12] MEDS: POLYETHYLENE GLYCOL 3350 17 GM PACKET. PO SCH (11:31)
[2018-04-12] MEDS: DOCUSATE SODIUM 100 MG CAPSULE PO SCH ×2 (11:31→19:55)
[2018-04-12 16:00] VITALS: BP 138/79
[2018-04-12] MEDS: AMITRIPTYLINE HCL 25 MG TABLET PO SCH (19:55)
[2018-04-12] MEDS: MELATONIN 3 MG TABLET PO SCH (19:55)
[2018-04-12] MEDS: TAMSULOSIN 0.4 MG CAP.ER.24H. PO SCH (19:55)
[2018-04-12] MEDS: hydrOXYzine HCL 25 MG TABLET PO PRN (19:57)
--- NOTE | 2018-04-12 20:50 | PDOC ---
Exam Note: Lopez Note: Please also refer to the separate dictated note~for this date of service dictated separately.~Patient seen individually. Discussed the patient with Nursing staff reviewed the chart.~Reviewed interim history and current functioning. Reviewed vital signs,~Labs/ Radiology~and current medications noted below. Continue current treatment with the changes noted in the dictated addendum note Assessment: Vital Signs: Vital Signs Date Time Temp Pulse Resp B/P (MAP) Pulse Ox O2 Delivery O2 Flow Rate FiO2 04/12/18 16:00 98.4 82 20 138/79 (98) 97 04/10/18 16:27 Room Air I&O Intake and Output 04/12/18 07:00 Intake Total 360 ml Balance 360 ml Intake Oral 360 ml # Voids 1 Current Medications: Meds: Current Medications Acetaminophen (Tylenol) 650 mg PRN Q6HRS PRN PO PAIN / TEMP; Start 04/05/18 at 17:45 Multi-Ingredient Ointment (Analgesic [place]) 1 danica PRN QID PRN TP MUSCLE PAIN; Start 04/05/18 at 17:45 Al Hydroxide/Mg Hydroxide (Mylanta Plus Xs) 15 ml PRN AFTMEALHC PRN PO DYSPEPSIA Last administered on 04/07/18at 02:11; Start 04/05/18 at 17:45 Magnesium Hydroxide (Milk Of Magnesia) 2,400 mg PRN QHS PRN PO CONSTIPATION Last administered on 04/09/18at 17:50; Start 04/05/18 at 17:45 Calcium Carbonate/ Glycine (Tums) 500 mg PRN AFTMEALHC PRN PO INDIGESTION Last administered on 04/08/18at 04:46; Start 04/05/18 at 18:30 Mirtazapine (Remeron) 30 mg QHS PO Last administered on 04/07/18at 19:33; Start 04/05/18 at 21:00; Stop 04/08/18 at 16:58; Status DC Docusate Sodium (Colace) 100 mg BID PO Last administered on 04/12/18at 19:55; Start 04/05/18 at 21:00 Lactobacillus Rhamnosus (Culturelle) 1 cap DAILY PO Last administered on at 11:31; Start 04/06/18 at 09:00 Melatonin 3 mg HS PO Last administered on 8/18/18at 20:00; Start 04/05/18 at 21 :00; Stop 04/10/18 at 18:16; Status DC Multivitamins/ Calcium (Thera-M Plus) 1 tab DAILY PO Last administered on 11:31; Start 04/06/18 at 09:00 Pantoprazole Sodium (Protonix) 40 mg DAILY PO Last administered on 04/12/18 11 :31; Start 04/06/18 at 09:00 Polyethylene Glycol (miraLAX) 17 gm DAILY PO Last administered on 04/12/18 11: 31; Start 04/06/18 at 09:00 Trazodone HCl (Desyrel) 50 mg PRN QHS PRN PO INSOMNIA Last administered on 04/08 00:23; Start 04/06/18 at 00:15; Stop 04/08/18 at 16:58; Status DC Olanzapine (ZyPREXA) 2.5 mg PRN Q24HRS PRN PO PSYCHOSIS; Start 04/06/18 at 14: 45; Stop 04/06/18 at 14:59; Status DC Olanzapine (ZyPREXA) 2.5 mg PRN Q2HR PRN PO ANXIETY/PSYCHOSIS Last administered on 04/08/18at 08:44; Start 04/06/18 at 15:00; Stop 04/08/18 at 15:23 ; Status DC Olanzapine (ZyPREXA ZYDIS) 2.5 mg PRN Q2HR PRN PO PSYCHOSIS Last administered on 04/10/18 20:30; Start 04/08/18 at 15:30 Mirtazapine (Remeron) 15 mg QHS PO Last administered on 04/10/18at 20:28; Start 04/08/18 at 21:00; Stop 04/11/18 at 17:43; Status DC Trazodone HCl (Desyrel) 100 mg PRN QHS PRN PO INSOMNIA, MAY REPEAT X1 Last administered on 04/10/18 20:30; Start 04/08/18 at 17:00 Famotidine (Pepcid) 20 mg DAILY PO Last administered on 04/12/18 11:31; Start 04/09/18 at 09:00 Sertraline HCl (Zoloft) 25 mg DAILY PO Last administered on 8/21/18at 11:31; Start 04/09/18 at 09:00 Clonazepam (KlonoPIN) 0.5 mg HS PO Last administered on 04/11/18at 20:49; Start 04/09/18 at 21:00; Stop 04/11/18 at 23:00; Status DC Clonazepam (KlonoPIN) 0.25 mg HS PO ; Start 04/14/18 at 21:00; Stop 04/16/18 at 21:01 Hydroxyzine HCl (Atarax) 25 mg PRN Q4HRS PRN PO ANXIETY / AGITATION Last administered on 04/12/18at 19:57; Start 04/09/18 at 10:45 Melatonin 6 mg HS PO Last administered on 04/12/18 19:55; Start 04/10/18 at 21 :00 Tamsulosin HCl (Flomax) 0.4 mg QHS PO Last administered on 04/12/18 19:55; Start 04/11/18 at 21:00 Amitriptyline HCl (Elavil) 25 mg QHS PO Last administered on 04/12/18at 19:55; Start 04/11/18 at 21:00 Active Scripts Active Calcium Carbonate 200 Mg Tab.chew 500 Mg PO PRN AFTMEALHC PRN 30 Days Reported Zyprexa Zydis (Olanzapine) 5 Mg Tab.rapdis 2.5 Mg PO PRN Q2HR PRN Miralax (Polyethylene Glycol 3350) 17 Gm Powd.pack 1 Packet PO DAILY LAST DOSE GIVEN: DATE: TIME: NEXT DOSE DUE: DATE: TIME: Melatonin 3 Mg Tablet 1 Mg PO HS Mirtazapine 30 Mg Tablet 1 Tab PO QHS Docusate Sodium 100 Mg Capsule 1 Cap PO BID Probiotic (Lactobacillus Acidophilus) 1 Each Capsule 1 Each PO DAILY Multivitamins (Multivitamin) 1 Each Tablet 1 Tab PO DAILY Omeprazole 20 Mg Tablet. 1 Tab PO DAILY Clonazepam 1 Mg Tablet 1 Tab PO QHS I have reviewed the current psychotropics carefully including drug interactions. Risk benefit ratio favors no change other than as noted in my dictated progress note. Diagnosis: Problems: (1) Anxiety disorder (2) Impulse control disorder (3) Altered mental status (4) Dementia, vascular, with depression (5) Dementia in Alzheimer's disease with depression (6) Anxiety disorder (7) Major depressive disorder, recurrent episode RADHA MILLER MD Apr 12, 2018 20:50
[2018-04-13] MEDS: traZODone 50 MG TABLET. PO PRN (01:35)
--- NOTE | 2018-04-13 02:11 | PN ---
DATE: 04/11/2018 PSYCHIATRIC PROGRESS NOTE This is a late entry 04/11/2018 covers elements not covered in my initial note. SUBJECTIVE: I met with the patient in the evening. The patient slept 8 hours previous evening. He tends to have some tremors in the evening, woke up around 2 a.m., slept 10 in the morning. The 2 a.m. wakening was despite the Remeron and the melatonin, which was increased to 6 mg. He has had some symptoms of urinary obstruction, started on Flomax per Dr. Gandhi. REVIEW OF SYSTEMS: No CV, , pulmonary, eye, ENT system symptoms on review. Reliability poor. MENTAL STATUS EXAM: Oriented to himself. Insight, judgment, recent and remote memory, attention, concentration, fund of knowledge poor, consistent with his diagnosis mentioned in my initial note. PLAN: Change Remeron to amitriptyline 25 mg p.o. at bedtime to help with insomnia and anxiety. Continue rest unchanged. MAN Berta MILLER MD DR: ALAN/thomas JOB#: [id number] / [id number]
[2018-04-13 05:36] VITALS: BP 115/77
[2018-04-13 07:29] LABS: BASO % 0 % (0-3); EOS # 0.1 x10^3/uL (0.0-0.7); EOS % 1 % (0-3); HEMATOCRIT 35.8 % (39.0-53.0); HEMOGLOBIN 12.6 g/dL (13.0-17.5); LYMPH # 0.8 x10^3/uL (1.0-4.8); LYMPH % 15 % (24-48); MEAN CORPUSCULAR HEMOGLOBIN 36 pg (25-35); MEAN CORPUSCULAR HGB CONC 35 g/dL (31-37); MEAN CORPUSCULAR VOLUME 101 fL (79-100); MONO # 0.3 x10^3/uL (0.0-1.1); MONO % 6 % (0-9); NEUT # 4.1 x10^3uL (1.8-7.7); NEUT % 78 % (31-73); PLATELET COUNT 111 x10^3/uL (140-400); RED BLOOD COUNT 3.54 x10^6/uL (4.30-5.70); WHITE BLOOD COUNT 5.2 x10^3/uL (4.0-11.0)
[2018-04-13 07:46] LABS: ALBUMIN 3.7 g/dL (3.4-5.0); ALBUMIN/GLOBULIN RATIO 1.3 (1.0-1.7); CREATININE 1.3 mg/dL (0.7-1.3); GFR 52.3; TOTAL BILIRUBIN 0.8 mg/dL (0.2-1.0); TOTAL PROTEIN 6.6 g/dL (6.4-8.2)
[2018-04-13] MEDS: LACTOBACILLUS RHAMNOSUS GG 1 CAPSULE. PO SCH (08:43)
[2018-04-13] MEDS: POLYETHYLENE GLYCOL 3350 17 GM PACKET. PO SCH (08:43)
[2018-04-13] MEDS: SERTRALINE 25 MG TABLET. PO SCH (08:43)
[2018-04-13] MEDS: MULTIVITAMIN with MINERAL TABLET. PO SCH (08:43)
[2018-04-13] MEDS: FAMOTIDINE 20 MG TABLET PO SCH (08:43)
[2018-04-13] MEDS: PANTOPRAZOLE 40 MG TABLET. PO SCH (08:43)
[2018-04-13] MEDS: DOCUSATE SODIUM 100 MG CAPSULE PO SCH ×2 (08:43→19:17)
[2018-04-13 16:00] VITALS: BP 163/92
[2018-04-13] MEDS: AMITRIPTYLINE HCL 25 MG TABLET PO SCH (19:17)
[2018-04-13] MEDS: TAMSULOSIN 0.4 MG CAP.ER.24H. PO SCH (19:18)
[2018-04-13] MEDS: MELATONIN 3 MG TABLET PO SCH (19:18)
--- NOTE | 2018-04-13 20:59 | PDOC ---
Exam Note: Lopez Note: Please also refer to the separate dictated note~for this date of service dictated separately.~Patient seen individually. Discussed the patient with Nursing staff reviewed the chart.~Reviewed interim history and current functioning. Reviewed vital signs,~Labs/ Radiology~and current medications noted below. Continue current treatment with the changes noted in the dictated addendum note Assessment: Vital Signs: Vital Signs Date Time Temp Pulse Resp B/P (MAP) Pulse Ox O2 Delivery O2 Flow Rate FiO2 04/13/18 16:00 97.4 94 18 163/92 (115) 95 04/10/18 16:27 Room Air I&O Intake and Output 04/13/18 07:00 Intake Total 840 ml Balance 840 ml Intake Oral 840 ml # Voids 1 Labs: Laboratory Tests Test 04/13/18 07:00 White Blood Count 5.2 x10^3/uL (4.0-11.0) Red Blood Count 3.54 x10^6/uL (4.30-5.70) L Hemoglobin 12.6 g/dL (13.0-17.5) L Hematocrit 35.8 % (39.0-53.0) L Mean Corpuscular Volume 101 fL (79-100) H Mean Corpuscular Hemoglobin 36 pg (25-35) H Mean Corpuscular Hemoglobin Concent 35 g/dL (31-37) Red Cell Distribution Width 15.0 % (11.5-14.5) H Platelet Count 111 x10^3/uL (140-400) L Neutrophils (%) (Auto) 78 % (31-73) H Lymphocytes (%) (Auto) 15 % (24-48) L Monocytes (%) (Auto) 6 % (0-9) Eosinophils (%) (Auto) 1 % (0-3) Basophils (%) (Auto) 0 % (0-3) Neutrophils # (Auto) 4.1 x10^3uL (1.8-7.7) Lymphocytes # (Auto) 0.8 x10^3/uL (1.0-4.8) L Monocytes # (Auto) 0.3 x10^3/uL (0.0-1.1) Eosinophils # (Auto) 0.1 x10^3/uL (0.0-0.7) Basophils # (Auto) 0.0 x10^3/uL (0.0-0.2) Sodium Level 145 mmol/L (136-145) Potassium Level 4.0 mmol/L (3.5-5.1) Chloride Level 109 mmol/L (98-107) H Carbon Dioxide Level 26 mmol/L (21-32) Anion Gap 10 (6-14) Blood Urea Nitrogen 19 mg/dL (8-26) Creatinine 1.3 mg/dL (0.7-1.3) Estimated GFR (Cockcroft-Gault) 52.3 BUN/Creatinine Ratio 15 (6-20) Glucose Level 125 mg/dL (70-99) H Calcium Level 9.0 mg/dL (8.5-10.1) Total Bilirubin 0.8 mg/dL (0.2-1.0) Aspartate Amino Transferase (AST) 14 U/L (15-37) L Alanine Aminotransferase (ALT) 27 U/L (16-63) Alkaline Phosphatase 64 U/L (46-116) Total Protein 6.6 g/dL (6.4-8.2) Albumin 3.7 g/dL (3.4-5.0) Albumin/Globulin Ratio 1.3 (1.0-1.7) Current Medications: Meds: Current Medications Acetaminophen (Tylenol) 650 mg PRN Q6HRS PRN PO PAIN / TEMP; Start 04/05/18 at 17:45 Multi-Ingredient Ointment (Analgesic [place]) 1 danica PRN QID PRN TP MUSCLE PAIN; Start 04/05/18 at 17:45 Al Hydroxide/Mg Hydroxide (Mylanta Plus Xs) 15 ml PRN AFTMEALHC PRN PO DYSPEPSIA Last administered on 04/07/18at 02:11; Start 04/05/18 at 17:45 Magnesium Hydroxide (Milk Of Magnesia) 2,400 mg PRN QHS PRN PO CONSTIPATION Last administered on 04/09/18at 17:50; Start 04/05/18 at 17:45 Calcium Carbonate/ Glycine (Tums) 500 mg PRN AFTMEALHC PRN PO INDIGESTION Last administered on 04/08/18at 04:46; Start 04/05/18 at 18:30 Mirtazapine (Remeron) 30 mg QHS PO Last administered on 04/07/18at 19:33; Start 04/05/18 at 21:00; Stop 04/08/18 at 16:58; Status DC Docusate Sodium (Colace) 100 mg BID PO Last administered on 04/13/18at 19:17; Start 04/05/18 at 21:00 Lactobacillus Rhamnosus (Culturelle) 1 cap DAILY PO Last administered on 08:43; Start 04/06/18 at 09:00 Melatonin 3 mg HS PO Last administered on 04/09/18at 20:00; Start 04/05/18 at 21 :00; Stop 04/10/18 at 18:16; Status DC Multivitamins/ Calcium (Thera-M Plus) 1 tab DAILY PO Last administered on at 08:43; Start 04/06/18 at 09:00 Pantoprazole Sodium (Protonix) 40 mg DAILY PO Last administered on 04/13/18at 08 :43; Start 04/06/18 at 09:00 Polyethylene Glycol (miraLAX) 17 gm DAILY PO Last administered on 04/13/18at 08: 43; Start 04/06/18 at 09:00 Trazodone HCl (Desyrel) 50 mg PRN QHS PRN PO INSOMNIA Last administered on 04/08at 00:23; Start 04/06/18 at 00:15; Stop 04/08/18 at 16:58; Status DC Olanzapine (ZyPREXA) 2.5 mg PRN Q24HRS PRN PO PSYCHOSIS; Start 04/06/18 at 14: 45; Stop 04/06/18 at 14:59; Status DC Olanzapine (ZyPREXA) 2.5 mg PRN Q2HR PRN PO ANXIETY/PSYCHOSIS Last administered on 04/08/18at 08:44; Start 04/06/18 at 15:00; Stop 04/08/18 at 15:23 ; Status DC Olanzapine (ZyPREXA ZYDIS) 2.5 mg PRN Q2HR PRN PO PSYCHOSIS Last administered on 04/10/18at 20:30; Start 04/08/18 at 15:30 Mirtazapine (Remeron) 15 mg QHS PO Last administered on 04/10/18at 20:28; Start 04/08/18 at 21:00; Stop 04/11/18 at 17:43; Status DC Trazodone HCl (Desyrel) 100 mg PRN QHS PRN PO INSOMNIA, MAY REPEAT X1 Last administered on 04/13/18at 01:35; Start 04/08/18 at 17:00 Famotidine (Pepcid) 20 mg DAILY PO Last administered on 04/13/18at 08:43; Start 04/09/18 at 09:00 Sertraline HCl (Zoloft) 25 mg DAILY PO Last administered on 04/13/18at 08:43; Start 04/09/18 at 09:00; Stop 04/13/18 at 16:40; Status DC Clonazepam (KlonoPIN) 0.5 mg HS PO Last administered on 04/11/18at 20:49; Start 04/09/18 at 21:00; Stop 04/11/18 at 23:00; Status DC Clonazepam (KlonoPIN) 0.25 mg HS PO ; Start 04/14/18 at 21:00; Stop 04/16/18 at 21:01 Hydroxyzine HCl (Atarax) 25 mg PRN Q4HRS PRN PO ANXIETY / AGITATION Last administered on 04/12/18at 19:57; Start 04/09/18 at 10:45 Melatonin 6 mg HS PO Last administered on 04/13/18at 19:18; Start 04/10/18 at 21 :00 Tamsulosin HCl (Flomax) 0.4 mg QHS PO Last administered on 04/13/18at 19:18; Start 04/11/18 at 21:00 Amitriptyline HCl (Elavil) 25 mg QHS PO Last administered on 04/13/18at 19:17; Start 04/11/18 at 21:00 Sertraline HCl (Zoloft) 50 mg DAILY PO ; Start 04/14/18 at 09:00 Active Scripts Active Calcium Carbonate 200 Mg Tab.chew 500 Mg PO PRN AFTMEALHC PRN 30 Days Reported Zyprexa Zydis (Olanzapine) 5 Mg Tab.rapdis 2.5 Mg PO PRN Q2HR PRN Miralax (Polyethylene Glycol 3350) 17 Gm Powd.pack 1 Packet PO DAILY LAST DOSE GIVEN: DATE: TIME: NEXT DOSE DUE: DATE: TIME: Melatonin 3 Mg Tablet 1 Mg PO HS Mirtazapine 30 Mg Tablet 1 Tab PO QHS Docusate Sodium 100 Mg Capsule 1 Cap PO BID Probiotic (Lactobacillus Acidophilus) 1 Each Capsule 1 Each PO DAILY Multivitamins (Multivitamin) 1 Each Tablet 1 Tab PO DAILY Omeprazole 20 Mg Tablet. 1 Tab PO DAILY Clonazepam 1 Mg Tablet 1 Tab PO QHS I have reviewed the current psychotropics carefully including drug interactions. Risk benefit ratio favors no change other than as noted in my dictated progress note. Diagnosis: Problems: (1) Anxiety disorder (2) Impulse control disorder (3) Altered mental status (4) Dementia, vascular, with depression (5) Dementia in Alzheimer's disease with depression (6) Anxiety disorder (7) Major depressive disorder, recurrent episode RADHA MILLER MD Apr 13, 2018 20:59
--- NOTE | 2018-04-13 23:07 | PN ---
DATE: 04/12/2018 This late entry for 04/12/2018 covers elements not covered in my initial note. SUBJECTIVE: I met with the patient in the evening. The patient slept 7 hours previous night, has had some hand tremors, more so after 07:00 p.m. with worsening confusion with sundowning per family members. We will have Neurology consult with Dr. Paulino to clarify this. REVIEW OF SYSTEMS: No CV, , pulmonary, eye, ENT system symptoms on review. He is hard of hearing. MENTAL STATUS EXAM: Oriented to himself, situation. Insight, judgment, recent and remote memory, attention, concentration, fund of knowledge poor, consistent with his diagnosis mentioned in my initial note. PLAN: No change from initial note. Continue psychotropics from initial note. Taper the Klonopin. MAN Berta MILLER MD DR: ALAN/thomas JOB#: [id number] / [id number]
[2018-04-14 05:56] VITALS: BP 129/71
[2018-04-14] MEDS: FAMOTIDINE 20 MG TABLET PO SCH (09:33)
[2018-04-14] MEDS: MULTIVITAMIN with MINERAL TABLET. PO SCH (09:33)
[2018-04-14] MEDS: LACTOBACILLUS RHAMNOSUS GG 1 CAPSULE. PO SCH (09:33)
[2018-04-14] MEDS: POLYETHYLENE GLYCOL 3350 17 GM PACKET. PO SCH (09:33)
[2018-04-14] MEDS: PANTOPRAZOLE 40 MG TABLET. PO SCH (09:33)
[2018-04-14] MEDS: DOCUSATE SODIUM 100 MG CAPSULE PO SCH ×2 (09:33→20:04)
[2018-04-14] MEDS: SERTRALINE 50 MG TABLET. PO SCH (09:34)
[2018-04-14 15:58] VITALS: BP 160/77
[2018-04-14] MEDS: TAMSULOSIN 0.4 MG CAP.ER.24H. PO SCH (20:04)
[2018-04-14] MEDS: MELATONIN 3 MG TABLET PO SCH (20:04)
[2018-04-14] MEDS: AMITRIPTYLINE HCL 25 MG TABLET PO SCH (20:04)
[2018-04-14] MEDS: clonazePAM 0.5 MG TABLET PO SCH (20:05)
--- NOTE | 2018-04-14 20:36 | PDOC ---
Exam Note: Lopez Note: Please also refer to the separate dictated note~for this date of service dictated separately.~Patient seen individually. Discussed the patient with Nursing staff reviewed the chart.~Reviewed interim history and current functioning. Reviewed vital signs,~Labs/ Radiology~and current medications noted below. Continue current treatment with the changes noted in the dictated addendum note Assessment: Vital Signs: Vital Signs Date Time Temp Pulse Resp B/P (MAP) Pulse Ox O2 Delivery O2 Flow Rate FiO2 04/14/18 15:58 97.1 92 20 160/77 (104) 96 Room Air I&O Intake and Output 04/14/18 07:00 Intake Total 960 ml Balance 960 ml Intake Oral 960 ml # Voids 1 Current Medications: Meds: Current Medications Acetaminophen (Tylenol) 650 mg PRN Q6HRS PRN PO PAIN / TEMP; Start 04/05/18 at 17:45 Multi-Ingredient Ointment (Analgesic [place]) 1 danica PRN QID PRN TP MUSCLE PAIN; Start 04/05/18 at 17:45 Al Hydroxide/Mg Hydroxide (Mylanta Plus Xs) 15 ml PRN AFTMEALHC PRN PO DYSPEPSIA Last administered on 04/07/18at 02:11; Start 04/05/18 at 17:45 Magnesium Hydroxide (Milk Of Magnesia) 2,400 mg PRN QHS PRN PO CONSTIPATION Last administered on 04/09/18at 17:50; Start 04/05/18 at 17:45 Calcium Carbonate/ Glycine (Tums) 500 mg PRN AFTMEALHC PRN PO INDIGESTION Last administered on 04/08/18at 04:46; Start 04/05/18 at 18:30 Mirtazapine (Remeron) 30 mg QHS PO Last administered on 04/07/18at 19:33; Start 04/05/18 at 21:00; Stop 04/08/18 at 16:58; Status DC Docusate Sodium (Colace) 100 mg BID PO Last administered on 04/14/18at 20:04; Start 04/05/18 at 21:00 Lactobacillus Rhamnosus (Culturelle) 1 cap DAILY PO Last administered on at 09:33; Start 04/06/18 at 09:00 Melatonin 3 mg HS PO Last administered on 04/09/18at 20:00; Start 04/05/18 at 21 :00; Stop 04/10/18 at 18:16; Status DC Multivitamins/ Calcium (Thera-M Plus) 1 tab DAILY PO Last administered on 09:33; Start 04/06/18 at 09:00 Pantoprazole Sodium (Protonix) 40 mg DAILY PO Last administered on 04/14/18 09 :33; Start 04/06/18 at 09:00 Polyethylene Glycol (miraLAX) 17 gm DAILY PO Last administered on 04/14/18 09: 33; Start 04/06/18 at 09:00 Trazodone HCl (Desyrel) 50 mg PRN QHS PRN PO INSOMNIA Last administered on 04/08at 00:23; Start 04/06/18 at 00:15; Stop 04/08/18 at 16:58; Status DC Olanzapine (ZyPREXA) 2.5 mg PRN Q24HRS PRN PO PSYCHOSIS; Start 04/06/18 at 14: 45; Stop 04/06/18 at 14:59; Status DC Olanzapine (ZyPREXA) 2.5 mg PRN Q2HR PRN PO ANXIETY/PSYCHOSIS Last administered on 04/08/18at 08:44; Start 04/06/18 at 15:00; Stop 04/08/18 at 15:23 ; Status DC Olanzapine (ZyPREXA ZYDIS) 2.5 mg PRN Q2HR PRN PO PSYCHOSIS Last administered on 04/10/18at 20:30; Start 04/08/18 at 15:30 Mirtazapine (Remeron) 15 mg QHS PO Last administered on 04/10/18at 20:28; Start 04/08/18 at 21:00; Stop 04/11/18 at 17:43; Status DC Trazodone HCl (Desyrel) 100 mg PRN QHS PRN PO INSOMNIA, MAY REPEAT X1 Last administered on 04/13/18at 01:35; Start 04/08/18 at 17:00 Famotidine (Pepcid) 20 mg DAILY PO Last administered on 04/14/18 09:33; Start 04/09/18 at 09:00 Sertraline HCl (Zoloft) 25 mg DAILY PO Last administered on 04/13/18at 08:43; Start 04/09/18 at 09:00; Stop 04/13/18 at 16:40; Status DC Clonazepam (KlonoPIN) 0.5 mg HS PO Last administered on 04/11/18at 20:49; Start 04/09/18 at 21:00; Stop 04/11/18 at 23:00; Status DC Clonazepam (KlonoPIN) 0.25 mg HS PO Last administered on 04/14/18at 20:05; Start 04/14/18 at 21:00; Stop 04/16/18 at 21:01 Hydroxyzine HCl (Atarax) 25 mg PRN Q4HRS PRN PO ANXIETY / AGITATION Last administered on 04/12/18at 19:57; Start 04/09/18 at 10:45 Melatonin 6 mg HS PO Last administered on 04/14/18at 20:04; Start 04/10/18 at 21 :00 Tamsulosin HCl (Flomax) 0.4 mg QHS PO Last administered on 04/14/18at 20:04; Start 04/11/18 at 21:00 Amitriptyline HCl (Elavil) 25 mg QHS PO Last administered on 04/14/18at 20:04; Start 04/11/18 at 21:00 Sertraline HCl (Zoloft) 50 mg DAILY PO Last administered on 04/14/18at 09:34; Start 04/14/18 at 09:00 Active Scripts Active Calcium Carbonate 200 Mg Tab.chew 500 Mg PO PRN AFTMEALHC PRN 30 Days Reported Zyprexa Zydis (Olanzapine) 5 Mg Tab.rapdis 2.5 Mg PO PRN Q2HR PRN Miralax (Polyethylene Glycol 3350) 17 Gm Powd.pack 1 Packet PO DAILY LAST DOSE GIVEN: DATE: TIME: NEXT DOSE DUE: DATE: TIME: Melatonin 3 Mg Tablet 1 Mg PO HS Mirtazapine 30 Mg Tablet 1 Tab PO QHS Docusate Sodium 100 Mg Capsule 1 Cap PO BID Probiotic (Lactobacillus Acidophilus) 1 Each Capsule 1 Each PO DAILY Multivitamins (Multivitamin) 1 Each Tablet 1 Tab PO DAILY Omeprazole 20 Mg Tablet. 1 Tab PO DAILY Clonazepam 1 Mg Tablet 1 Tab PO QHS I have reviewed the current psychotropics carefully including drug interactions. Risk benefit ratio favors no change other than as noted in my dictated progress note. Diagnosis: Problems: (1) Anxiety disorder (2) Impulse control disorder (3) Altered mental status (4) Dementia, vascular, with depression (5) Dementia in Alzheimer's disease with depression (6) Anxiety disorder (7) Major depressive disorder, recurrent episode RADHA MILLER MD Apr 14, 2018 20:36
[2018-04-15 05:54] VITALS: BP 119/77
[2018-04-15] MEDS: LACTOBACILLUS RHAMNOSUS GG 1 CAPSULE. PO SCH (08:14)
[2018-04-15] MEDS: SERTRALINE 50 MG TABLET. PO SCH (08:14)
[2018-04-15] MEDS: DOCUSATE SODIUM 100 MG CAPSULE PO SCH ×2 (08:14→20:22)
[2018-04-15] MEDS: PANTOPRAZOLE 40 MG TABLET. PO SCH (08:14)
[2018-04-15] MEDS: MULTIVITAMIN with MINERAL TABLET. PO SCH (08:14)
[2018-04-15] MEDS: POLYETHYLENE GLYCOL 3350 17 GM PACKET. PO SCH (08:15)
[2018-04-15] MEDS: FAMOTIDINE 20 MG TABLET PO SCH (08:15)
[2018-04-15 16:36] VITALS: BP 150/79
[2018-04-15] MEDS: MELATONIN 3 MG TABLET PO SCH (20:22)
[2018-04-15] MEDS: TAMSULOSIN 0.4 MG CAP.ER.24H. PO SCH (20:24)
[2018-04-15] MEDS: clonazePAM 0.5 MG TABLET PO SCH (20:24)
[2018-04-15] MEDS: AMITRIPTYLINE HCL 25 MG TABLET PO SCH (20:24)
--- NOTE | 2018-04-16 00:29 | PN ---
DATE: 04/13/2018 PSYCHIATRIC PROGRESS NOTE This is a late entry 04/13/2018, covers elements not covered in my initial note. SUBJECTIVE: I met with the patient in the evening. The patient slept 5 hours previous evening, remains confused. REVIEW OF SYSTEMS: Hard of hearing. He has had some hand tremors. We have consulted Dr. Paulino for this, but does not have a diagnosis of Parkinson's. He is obsessed regarding his razor last night and during the day on 04/13/2018, obsessed regarding his glasses. No CV, , pulmonary, eye, ENT system symptoms on review. MENTAL STATUS EXAM: Oriented to himself. Insight, judgment, recent and remote memory, attention, concentration, fund of knowledge poor, consistent with his diagnosis mentioned in my initial note. PLAN: Increase Zoloft to 50 mg a day. He did receive Atarax, trazodone ____ due to anxiety, restlessness middle of the night, continue. Rest unchanged per initial note. MAN Berta MILLER MD DR: ALAN/thomas JOB#: [id number] / [id number]
--- NOTE | 2018-04-16 01:09 | PN ---
DATE: 04/14/2018 PSYCHIATRIC PROGRESS NOTE This is a late entry of 04/14/2018 covers elements not covered in my initial note. SUBJECTIVE: I met with the patient in the evening, staffed at a treatment team meeting with the entire team in the morning. The patient's niece, Flor attended the conference. Lengthy discussion about his diagnosis, placement options. He slept 6-1/2 hours previous evening. Discussed about him getting a hearing aid, new glasses. As he is hard of hearing, we will provide hearing amplifier while he is in the hospital. Niece has looked at the ____ assisted. Other options were discussed. He gets much more confused, agitated in the evening, and much better during the day. REVIEW OF SYSTEMS: No CV, , pulmonary, eye, ENT system symptoms on review other than the hard of hearing, poor vision. Reliability poor. MENTAL STATUS EXAM: Oriented to himself. Insight, judgment, recent and remote memory, attention, concentration, fund of knowledge poor, consistent with his diagnosis mentioned in my initial note. PLAN: No change from initial note. MAN Berta MILLER MD DR: ALAN/thomas JOB#: [id number] / [id number]
[2018-04-16 06:26] VITALS: BP 142/67
[2018-04-16] MEDS: POLYETHYLENE GLYCOL 3350 17 GM PACKET. PO SCH (08:14)
[2018-04-16] MEDS: FAMOTIDINE 20 MG TABLET PO SCH (08:15)
[2018-04-16] MEDS: MULTIVITAMIN with MINERAL TABLET. PO SCH (08:15)
[2018-04-16] MEDS: LACTOBACILLUS RHAMNOSUS GG 1 CAPSULE. PO SCH (08:15)
[2018-04-16] MEDS: DOCUSATE SODIUM 100 MG CAPSULE PO SCH ×2 (08:15→20:19)
[2018-04-16] MEDS: SERTRALINE 50 MG TABLET. PO SCH (08:15)
[2018-04-16] MEDS: PANTOPRAZOLE 40 MG TABLET. PO SCH (08:15)
[2018-04-16 16:11] VITALS: BP 161/91
[2018-04-16] MEDS: AMITRIPTYLINE HCL 25 MG TABLET PO SCH (20:19)
[2018-04-16] MEDS: TAMSULOSIN 0.4 MG CAP.ER.24H. PO SCH (20:20)
[2018-04-16] MEDS: MELATONIN 3 MG TABLET PO SCH (20:20)
[2018-04-16] MEDS: traZODone 50 MG TABLET. PO PRN (20:21)
[2018-04-16] MEDS: clonazePAM 0.5 MG TABLET PO SCH (20:21)
--- NOTE | 2018-04-16 22:25 | PDOC ---
Exam Note: Lopez Note: Please also refer to the separate dictated note~for this date of service dictated separately.~Patient seen individually. Discussed the patient with Nursing staff reviewed the chart.~Reviewed interim history and current functioning. Reviewed vital signs,~Labs/ Radiology~and current medications noted below. Continue current treatment with the changes noted in the dictated addendum note Assessment: Vital Signs: Vital Signs Date Time Temp Pulse Resp B/P (MAP) Pulse Ox O2 Delivery O2 Flow Rate FiO2 04/16/18 16:11 97.8 76 20 161/91 (114) 92 04/16/18 06:26 Room Air I&O Intake and Output 04/16/18 07:00 Intake Total 500 ml Balance 500 ml Intake Oral 500 ml Current Medications: Meds: Current Medications Acetaminophen (Tylenol) 650 mg PRN Q6HRS PRN PO PAIN / TEMP; Start 04/05/18 at 17:45 Multi-Ingredient Ointment (Analgesic [place]) 1 danica PRN QID PRN TP MUSCLE PAIN; Start 04/05/18 at 17:45 Al Hydroxide/Mg Hydroxide (Mylanta Plus Xs) 15 ml PRN AFTMEALHC PRN PO DYSPEPSIA Last administered on 04/07/18at 02:11; Start 04/05/18 at 17:45 Magnesium Hydroxide (Milk Of Magnesia) 2,400 mg PRN QHS PRN PO CONSTIPATION Last administered on 04/09/18at 17:50; Start 04/05/18 at 17:45 Calcium Carbonate/ Glycine (Tums) 500 mg PRN AFTMEALHC PRN PO INDIGESTION Last administered on 04/08/18at 04:46; Start 04/05/18 at 18:30 Mirtazapine (Remeron) 30 mg QHS PO Last administered on 04/07/18at 19:33; Start 04/05/18 at 21:00; Stop 04/08/18 at 16:58; Status DC Docusate Sodium (Colace) 100 mg BID PO Last administered on 04/16/18at 20:19; Start 04/05/18 at 21:00 Lactobacillus Rhamnosus (Culturelle) 1 cap DAILY PO Last administered on at 08:15; Start 04/06/18 at 09:00 Melatonin 3 mg HS PO Last administered on 04/09/18at 20:00; Start 04/05/18 at 21 :00; Stop 04/10/18 at 18:16; Status DC Multivitamins/ Calcium (Thera-M Plus) 1 tab DAILY PO Last administered on 08:15; Start 04/06/18 at 09:00 Pantoprazole Sodium (Protonix) 40 mg DAILY PO Last administered on 04/16/18 08 :15; Start 04/06/18 at 09:00 Polyethylene Glycol (miraLAX) 17 gm DAILY PO Last administered on 04/16/18 08: 14; Start 04/06/18 at 09:00 Trazodone HCl (Desyrel) 50 mg PRN QHS PRN PO INSOMNIA Last administered on 04/08at 00:23; Start 04/06/18 at 00:15; Stop 04/08/18 at 16:58; Status DC Olanzapine (ZyPREXA) 2.5 mg PRN Q24HRS PRN PO PSYCHOSIS; Start 04/06/18 at 14: 45; Stop 04/06/18 at 14:59; Status DC Olanzapine (ZyPREXA) 2.5 mg PRN Q2HR PRN PO ANXIETY/PSYCHOSIS Last administered on 04/08/18at 08:44; Start 04/06/18 at 15:00; Stop 04/08/18 at 15:23 ; Status DC Olanzapine (ZyPREXA ZYDIS) 2.5 mg PRN Q2HR PRN PO PSYCHOSIS Last administered on 04/15/18at 15:56; Start 04/08/18 at 15:30 Mirtazapine (Remeron) 15 mg QHS PO Last administered on 04/10/18at 20:28; Start 04/08/18 at 21:00; Stop 04/11/18 at 17:43; Status DC Trazodone HCl (Desyrel) 100 mg PRN QHS PRN PO INSOMNIA, MAY REPEAT X1 Last administered on 04/16/18 20:21; Start 04/08/18 at 17:00 Famotidine (Pepcid) 20 mg DAILY PO Last administered on 04/16/18 08:15; Start 04/09/18 at 09:00 Sertraline HCl (Zoloft) 25 mg DAILY PO Last administered on 04/13/18at 08:43; Start 04/09/18 at 09:00; Stop 04/13/18 at 16:40; Status DC Clonazepam (KlonoPIN) 0.5 mg HS PO Last administered on 04/11/18at 20:49; Start 04/09/18 at 21:00; Stop 04/11/18 at 23:00; Status DC Clonazepam (KlonoPIN) 0.25 mg HS PO Last administered on 04/16/18at 20:21; Start 04/14/18 at 21:00; Stop 04/16/18 at 21:01; Status DC Hydroxyzine HCl (Atarax) 25 mg PRN Q4HRS PRN PO ANXIETY / AGITATION Last administered on 04/12/18at 19:57; Start 04/09/18 at 10:45 Melatonin 6 mg HS PO Last administered on 04/16/18 20:20; Start 04/10/18 at 21 :00 Tamsulosin HCl (Flomax) 0.4 mg QHS PO Last administered on 04/16/18at 20:20; Start 04/11/18 at 21:00 Amitriptyline HCl (Elavil) 25 mg QHS PO Last administered on 04/14/18at 20:04; Start 04/11/18 at 21:00; Stop 04/15/18 at 17:07; Status DC Sertraline HCl (Zoloft) 50 mg DAILY PO Last administered on 04/16/18 08:15; Start 04/14/18 at 09:00 Amitriptyline HCl (Elavil) 37.5 mg QHS PO Last administered on 04/16/18at 20:19 ; Start 04/15/18 at 21:00 Active Scripts Active Calcium Carbonate 200 Mg Tab.chew 500 Mg PO PRN AFTMEALHC PRN 30 Days Reported Zyprexa Zydis (Olanzapine) 5 Mg Tab.rapdis 2.5 Mg PO PRN Q2HR PRN Miralax (Polyethylene Glycol 3350) 17 Gm Powd.pack 1 Packet PO DAILY LAST DOSE GIVEN: DATE: TIME: NEXT DOSE DUE: DATE: TIME: Melatonin 3 Mg Tablet 1 Mg PO HS Mirtazapine 30 Mg Tablet 1 Tab PO QHS Docusate Sodium 100 Mg Capsule 1 Cap PO BID Probiotic (Lactobacillus Acidophilus) 1 Each Capsule 1 Each PO DAILY Multivitamins (Multivitamin) 1 Each Tablet 1 Tab PO DAILY Omeprazole 20 Mg Tablet. 1 Tab PO DAILY Clonazepam 1 Mg Tablet 1 Tab PO QHS I have reviewed the current psychotropics carefully including drug interactions. Risk benefit ratio favors no change other than as noted in my dictated progress note. Diagnosis: Problems: (1) Anxiety disorder (2) Impulse control disorder (3) Altered mental status (4) Dementia, vascular, with depression (5) Dementia in Alzheimer's disease with depression (6) Anxiety disorder (7) Major depressive disorder, recurrent episode RADHA MILLER MD Apr 16, 2018 22:25
[2018-04-17 06:11] VITALS: BP 104/70
[2018-04-17] MEDS: FAMOTIDINE 20 MG TABLET PO SCH (08:44)
[2018-04-17] MEDS: PANTOPRAZOLE 40 MG TABLET. PO SCH (08:44)
[2018-04-17] MEDS: DOCUSATE SODIUM 100 MG CAPSULE PO SCH ×2 (08:44→19:56)
[2018-04-17] MEDS: POLYETHYLENE GLYCOL 3350 17 GM PACKET. PO SCH (08:44)
[2018-04-17] MEDS: MULTIVITAMIN with MINERAL TABLET. PO SCH (08:44)
[2018-04-17] MEDS: SERTRALINE 50 MG TABLET. PO SCH (08:44)
[2018-04-17] MEDS: LACTOBACILLUS RHAMNOSUS GG 1 CAPSULE. PO SCH (08:44)
[2018-04-17] MEDS: hydrOXYzine HCL 25 MG TABLET PO PRN (16:22)
[2018-04-17 16:35] VITALS: BP 158/79
[2018-04-17] MEDS: TAMSULOSIN 0.4 MG CAP.ER.24H. PO SCH (19:56)
[2018-04-17] MEDS: MELATONIN 3 MG TABLET PO SCH (19:56)
[2018-04-17] MEDS: AMITRIPTYLINE HCL 25 MG TABLET PO SCH (19:59)
[2018-04-17] MEDS: traZODone 50 MG TABLET. PO PRN (20:01)
--- NOTE | 2018-04-17 20:11 | PDOC ---
Exam Note: Lopez Note: Late entry for date of service March.Please also refer to the separate dictated note~for this date of service dictated separately.~Patient seen individually. Discussed the patient with Nursing staff reviewed the chart.~ Reviewed interim history and current functioning. Reviewed vital signs,~Labs/ Radiology~and current medications noted below. Continue current treatment with the changes noted in the dictated addendum note Assessment: Vital Signs: VS - Last 72 Hours, by Label Date Time Temp Pulse Resp B/P (MAP) Pulse Ox O2 Delivery O2 Flow Rate FiO2 04/17/18 16:35 98.3 81 22 158/79 (105) 98 04/17/18 06:11 97.6 79 20 104/70 (81) 97 Room Air 04/16/18 16:11 97.8 76 20 161/91 (114) 92 04/16/18 06:26 97.9 75 22 142/67 (92) 96 Room Air 04/15/18 16:36 97.7 87 20 150/79 (102) 97 Room Air 04/15/18 05:54 97.5 76 20 119/77 (91) 96 Vital Signs Date Time Temp Pulse Resp B/P (MAP) Pulse Ox O2 Delivery O2 Flow Rate FiO2 04/17/18 16:35 98.3 81 22 158/79 (105) 98 04/17/18 06:11 Room Air I&O Intake and Output 04/17/18 07:00 Intake Total 1080 ml Balance 1080 ml Intake Oral 1080 ml Current Medications: Meds: Current Medications Acetaminophen (Tylenol) 650 mg PRN Q6HRS PRN PO PAIN / TEMP; Start 04/05/18 at 17:45 Multi-Ingredient Ointment (Analgesic [place]) 1 danica PRN QID PRN TP MUSCLE PAIN; Start 04/05/18 at 17:45 Al Hydroxide/Mg Hydroxide (Mylanta Plus Xs) 15 ml PRN AFTMEALHC PRN PO DYSPEPSIA Last administered on 04/07/18at 02:11; Start 04/05/18 at 17:45 Magnesium Hydroxide (Milk Of Magnesia) 2,400 mg PRN QHS PRN PO CONSTIPATION Last administered on 04/09/18at 17:50; Start 04/05/18 at 17:45 Calcium Carbonate/ Glycine (Tums) 500 mg PRN AFTMEALHC PRN PO INDIGESTION Last administered on 04/08/18 04:46; Start 04/05/18 at 18:30 Mirtazapine (Remeron) 30 mg QHS PO Last administered on 04/07/18 19:33; Start 04/05/18 at 21:00; Stop 04/08/18 at 16:58; Status DC Docusate Sodium (Colace) 100 mg BID PO Last administered on 04/17/18 19:56; Start 04/05/18 at 21:00 Lactobacillus Rhamnosus (Culturelle) 1 cap DAILY PO Last administered on 08:44; Start 04/06/18 at 09:00 Melatonin 3 mg HS PO Last administered on 04/09/18at 20:00; Start 04/05/18 at 21 :00; Stop 04/10/18 at 18:16; Status DC Multivitamins/ Calcium (Thera-M Plus) 1 tab DAILY PO Last administered on 08:44; Start 04/06/18 at 09:00 Pantoprazole Sodium (Protonix) 40 mg DAILY PO Last administered on 04/17/18 08 :44; Start 04/06/18 at 09:00 Polyethylene Glycol (miraLAX) 17 gm DAILY PO Last administered on 04/17/18 08: 44; Start 04/06/18 at 09:00 Trazodone HCl (Desyrel) 50 mg PRN QHS PRN PO INSOMNIA Last administered on 04/08 00:23; Start 04/06/18 at 00:15; Stop 04/08/18 at 16:58; Status DC Olanzapine (ZyPREXA) 2.5 mg PRN Q24HRS PRN PO PSYCHOSIS; Start 04/06/18 at 14: 45; Stop 04/06/18 at 14:59; Status DC Olanzapine (ZyPREXA) 2.5 mg PRN Q2HR PRN PO ANXIETY/PSYCHOSIS Last administered on 04/08/18at 08:44; Start 04/06/18 at 15:00; Stop 04/08/18 at 15:23 ; Status DC Olanzapine (ZyPREXA ZYDIS) 2.5 mg PRN Q2HR PRN PO PSYCHOSIS Last administered on 04/15/18at 15:56; Start 04/08/18 at 15:30 Mirtazapine (Remeron) 15 mg QHS PO Last administered on 04/10/18at 20:28; Start 04/08/18 at 21:00; Stop 04/11/18 at 17:43; Status DC Trazodone HCl (Desyrel) 100 mg PRN QHS PRN PO INSOMNIA, MAY REPEAT X1 Last administered on 04/17/18 20:01; Start 04/08/18 at 17:00 Famotidine (Pepcid) 20 mg DAILY PO Last administered on 04/17/18 08:44; Start 04/09/18 at 09:00 Sertraline HCl (Zoloft) 25 mg DAILY PO Last administered on 04/13/18 08:43; Start 04/09/18 at 09:00; Stop 04/13/18 at 16:40; Status DC Clonazepam (KlonoPIN) 0.5 mg HS PO Last administered on 04/11/18at 20:49; Start 04/09/18 at 21:00; Stop 04/11/18 at 23:00; Status DC Clonazepam (KlonoPIN) 0.25 mg HS PO Last administered on 04/16/18at 20:21; Start 04/14/18 at 21:00; Stop 04/16/18 at 21:01; Status DC Hydroxyzine HCl (Atarax) 25 mg PRN Q4HRS PRN PO ANXIETY / AGITATION Last administered on 04/17/18at 16:22; Start 04/09/18 at 10:45 Melatonin 6 mg HS PO Last administered on 04/17/18at 19:56; Start 04/10/18 at 21 :00 Tamsulosin HCl (Flomax) 0.4 mg QHS PO Last administered on 04/17/18 19:56; Start 04/11/18 at 21:00 Amitriptyline HCl (Elavil) 25 mg QHS PO Last administered on 04/14/18at 20:04; Start 04/11/18 at 21:00; Stop 04/15/18 at 17:07; Status DC Sertraline HCl (Zoloft) 50 mg DAILY PO Last administered on 04/17/18 08:44; Start 04/14/18 at 09:00 Amitriptyline HCl (Elavil) 37.5 mg QHS PO Last administered on 04/17/18at 19:59 ; Start 04/15/18 at 21:00 Active Scripts Active Calcium Carbonate 200 Mg Tab.chew 500 Mg PO PRN AFTMEALHC PRN 30 Days Reported Zyprexa Zydis (Olanzapine) 5 Mg Tab.rapdis 2.5 Mg PO PRN Q2HR PRN Miralax (Polyethylene Glycol 3350) 17 Gm Powd.pack 1 Packet PO DAILY LAST DOSE GIVEN: DATE: TIME: NEXT DOSE DUE: DATE: TIME: Melatonin 3 Mg Tablet 1 Mg PO HS Mirtazapine 30 Mg Tablet 1 Tab PO QHS Docusate Sodium 100 Mg Capsule 1 Cap PO BID Probiotic (Lactobacillus Acidophilus) 1 Each Capsule 1 Each PO DAILY Multivitamins (Multivitamin) 1 Each Tablet 1 Tab PO DAILY Omeprazole 20 Mg Tablet. 1 Tab PO DAILY Clonazepam 1 Mg Tablet 1 Tab PO QHS I have reviewed the current psychotropics carefully including drug interactions. Risk benefit ratio favors no change other than as noted in my dictated progress note. Diagnosis: Problems: (1) Anxiety disorder (2) Impulse control disorder (3) Altered mental status (4) Dementia, vascular, with depression (5) Dementia in Alzheimer's disease with depression (6) Anxiety disorder (7) Major depressive disorder, recurrent episode RADHA MILLER MD Apr 17, 2018 20:11
--- NOTE | 2018-04-17 20:12 | PDOC ---
Exam Note: Lopez Note: Please also refer to the separate dictated note~for this date of service dictated separately.~Patient seen individually. Discussed the patient with Nursing staff reviewed the chart.~Reviewed interim history and current functioning. Reviewed vital signs,~Labs/ Radiology~and current medications noted below. Continue current treatment with the changes noted in the dictated addendum note Assessment: Vital Signs: Vital Signs Date Time Temp Pulse Resp B/P (MAP) Pulse Ox O2 Delivery O2 Flow Rate FiO2 04/17/18 16:35 98.3 81 22 158/79 (105) 98 04/17/18 06:11 Room Air I&O Intake and Output 04/17/18 07:00 Intake Total 1080 ml Balance 1080 ml Intake Oral 1080 ml Current Medications: Meds: Current Medications Acetaminophen (Tylenol) 650 mg PRN Q6HRS PRN PO PAIN / TEMP; Start 04/05/18 at 17:45 Multi-Ingredient Ointment (Analgesic [place]) 1 danica PRN QID PRN TP MUSCLE PAIN; Start 04/05/18 at 17:45 Al Hydroxide/Mg Hydroxide (Mylanta Plus Xs) 15 ml PRN AFTMEALHC PRN PO DYSPEPSIA Last administered on 04/07/18at 02:11; Start 04/05/18 at 17:45 Magnesium Hydroxide (Milk Of Magnesia) 2,400 mg PRN QHS PRN PO CONSTIPATION Last administered on 04/09/18at 17:50; Start 04/05/18 at 17:45 Calcium Carbonate/ Glycine (Tums) 500 mg PRN AFTMEALHC PRN PO INDIGESTION Last administered on 04/08/18at 04:46; Start 04/05/18 at 18:30 Mirtazapine (Remeron) 30 mg QHS PO Last administered on 04/07/18at 19:33; Start 04/05/18 at 21:00; Stop 04/08/18 at 16:58; Status DC Docusate Sodium (Colace) 100 mg BID PO Last administered on 04/17/18at 19:56; Start 04/05/18 at 21:00 Lactobacillus Rhamnosus (Culturelle) 1 cap DAILY PO Last administered on at 08:44; Start 04/06/18 at 09:00 Melatonin 3 mg HS PO Last administered on 04/09/18at 20:00; Start 04/05/18 at 21 :00; Stop 04/10/18 at 18:16; Status DC Multivitamins/ Calcium (Thera-M Plus) 1 tab DAILY PO Last administered on at 08:44; Start 04/06/18 at 09:00 Pantoprazole Sodium (Protonix) 40 mg DAILY PO Last administered on 04/17/18 08 :44; Start 04/06/18 at 09:00 Polyethylene Glycol (miraLAX) 17 gm DAILY PO Last administered on 04/17/18 08: 44; Start 04/06/18 at 09:00 Trazodone HCl (Desyrel) 50 mg PRN QHS PRN PO INSOMNIA Last administered on 04/08at 00:23; Start 04/06/18 at 00:15; Stop 04/08/18 at 16:58; Status DC Olanzapine (ZyPREXA) 2.5 mg PRN Q24HRS PRN PO PSYCHOSIS; Start 04/06/18 at 14: 45; Stop 04/06/18 at 14:59; Status DC Olanzapine (ZyPREXA) 2.5 mg PRN Q2HR PRN PO ANXIETY/PSYCHOSIS Last administered on 04/08/18 08:44; Start 04/06/18 at 15:00; Stop 04/08/18 at 15:23 ; Status DC Olanzapine (ZyPREXA ZYDIS) 2.5 mg PRN Q2HR PRN PO PSYCHOSIS Last administered on 04/15/18at 15:56; Start 04/08/18 at 15:30 Mirtazapine (Remeron) 15 mg QHS PO Last administered on 04/10/18at 20:28; Start 04/08/18 at 21:00; Stop 04/11/18 at 17:43; Status DC Trazodone HCl (Desyrel) 100 mg PRN QHS PRN PO INSOMNIA, MAY REPEAT X1 Last administered on 04/17/18at 20:01; Start 04/08/18 at 17:00 Famotidine (Pepcid) 20 mg DAILY PO Last administered on 04/17/18 08:44; Start 04/09/18 at 09:00 Sertraline HCl (Zoloft) 25 mg DAILY PO Last administered on 04/13/18at 08:43; Start 04/09/18 at 09:00; Stop 04/13/18 at 16:40; Status DC Clonazepam (KlonoPIN) 0.5 mg HS PO Last administered on 04/11/18at 20:49; Start 04/09/18 at 21:00; Stop 04/11/18 at 23:00; Status DC Clonazepam (KlonoPIN) 0.25 mg HS PO Last administered on 04/16/18at 20:21; Start 04/14/18 at 21:00; Stop 04/16/18 at 21:01; Status DC Hydroxyzine HCl (Atarax) 25 mg PRN Q4HRS PRN PO ANXIETY / AGITATION Last administered on 04/17/18 16:22; Start 04/09/18 at 10:45 Melatonin 6 mg HS PO Last administered on 04/17/18at 19:56; Start 04/10/18 at 21 :00 Tamsulosin HCl (Flomax) 0.4 mg QHS PO Last administered on 04/17/18at 19:56; Start 04/11/18 at 21:00 Amitriptyline HCl (Elavil) 25 mg QHS PO Last administered on 04/14/18at 20:04; Start 04/11/18 at 21:00; Stop 04/15/18 at 17:07; Status DC Sertraline HCl (Zoloft) 50 mg DAILY PO Last administered on 04/17/18at 08:44; Start 04/14/18 at 09:00 Amitriptyline HCl (Elavil) 37.5 mg QHS PO Last administered on 04/17/18at 19:59 ; Start 04/15/18 at 21:00 Active Scripts Active Calcium Carbonate 200 Mg Tab.chew 500 Mg PO PRN AFTMEALHC PRN 30 Days Reported Zyprexa Zydis (Olanzapine) 5 Mg Tab.rapdis 2.5 Mg PO PRN Q2HR PRN Miralax (Polyethylene Glycol 3350) 17 Gm Powd.pack 1 Packet PO DAILY LAST DOSE GIVEN: DATE: TIME: NEXT DOSE DUE: DATE: TIME: Melatonin 3 Mg Tablet 1 Mg PO HS Mirtazapine 30 Mg Tablet 1 Tab PO QHS Docusate Sodium 100 Mg Capsule 1 Cap PO BID Probiotic (Lactobacillus Acidophilus) 1 Each Capsule 1 Each PO DAILY Multivitamins (Multivitamin) 1 Each Tablet 1 Tab PO DAILY Omeprazole 20 Mg Tablet. 1 Tab PO DAILY Clonazepam 1 Mg Tablet 1 Tab PO QHS I have reviewed the current psychotropics carefully including drug interactions. Risk benefit ratio favors no change other than as noted in my dictated progress note. Diagnosis: Problems: (1) Anxiety disorder (2) Impulse control disorder (3) Altered mental status (4) Dementia, vascular, with depression (5) Dementia in Alzheimer's disease with depression (6) Anxiety disorder (7) Major depressive disorder, recurrent episode RADHA MILLER MD Apr 17, 2018 20:12
[2018-04-18] MEDS ORDERED: ACET325T21 PO (00:27)
[2018-04-18] MEDS ORDERED: AMIT50TA PO (00:28)
[2018-04-18] MEDS ORDERED: FAMO-63 PO (00:29)
[2018-04-18] MEDS ORDERED: MAG355OR17 PO (00:30)
[2018-04-18] MEDS ORDERED: MAGN2400 PO (00:30)
[2018-04-18] MEDS ORDERED: METH29OI TP (00:31)
[2018-04-18] MEDS ORDERED: SERT50TA PO (00:32)
[2018-04-18] MEDS ORDERED: TAMS0.4C97 PO (00:33)
[2018-04-18] MEDS ORDERED: HYDR25TA PO (00:34)
[2018-04-18] MEDS ORDERED: TRAZ-86 PO (00:35)
--- NOTE | 2018-04-18 01:49 | PN ---
DATE: 04/15/2018 PSYCHIATRIC PROGRESS NOTE This is a late entry 04/15/2018, covers elements not covered in my initial note. SUBJECTIVE: I met with the patient in the evening. The patient slept 4-3/4 hours previous evening. He has been up and down, anxious, and confused, wants to go home, received Zyprexa p.r.n. REVIEW OF SYSTEMS: No CV, , pulmonary, eye system symptoms on review. Hard of hearing. MENTAL STATUS EXAM: Oriented to himself. Insight, judgment, recent and remote memory, attention, concentration, fund of knowledge poor, consistent with his diagnosis mentioned in my initial note. PLAN: Increase amitriptyline to 37.5 mg p.o. at bedtime to help with insomnia and anxiety. Rest unchanged from initial note. MAN Berta MILLER MD DR: ALAN/thomas JOB#: [id number] / [id number]
[2018-04-18 05:34] VITALS: BP 135/84
[2018-04-18] MEDS: FAMOTIDINE 20 MG TABLET PO SCH (09:28)
[2018-04-18] MEDS: SERTRALINE 50 MG TABLET. PO SCH (09:28)
[2018-04-18] MEDS: DOCUSATE SODIUM 100 MG CAPSULE PO SCH (09:28)
[2018-04-18] MEDS: MULTIVITAMIN with MINERAL TABLET. PO SCH (09:28)
[2018-04-18] MEDS: PANTOPRAZOLE 40 MG TABLET. PO SCH (09:28)
[2018-04-18] MEDS: LACTOBACILLUS RHAMNOSUS GG 1 CAPSULE. PO SCH (09:28)
[2018-04-18] MEDS: POLYETHYLENE GLYCOL 3350 17 GM PACKET. PO SCH (09:28)
[2018-04-18] MEDS: hydrOXYzine HCL 25 MG TABLET PO PRN (09:32)
--- NOTE | 2018-04-18 18:33 | PDOC ---
Exam Note: Lopez Note: Please also refer to the separate dictated note~for this date of service dictated separately.~Patient seen individually. Discussed the patient with Nursing staff reviewed the chart.~Reviewed interim history and current functioning. Reviewed vital signs,~Labs/ Radiology~and current medications noted below. Continue current treatment with the changes noted in the dictated addendum note Assessment: Vital Signs: Vital Signs Date Time Temp Pulse Resp B/P (MAP) Pulse Ox O2 Delivery O2 Flow Rate FiO2 04/18/18 05:34 97.4 100 20 135/84 (101) 96 04/17/18 06:11 Room Air I&O Intake and Output 04/18/18 07:00 Intake Total 1200 ml Balance 1200 ml Intake Oral 1200 ml Current Medications: Meds: Current Medications Acetaminophen (Tylenol) 650 mg PRN Q6HRS PRN PO PAIN / TEMP; Start 04/05/18 at 17:45; Stop 04/18/18 at 14:09; Status DC Multi-Ingredient Ointment (Analgesic Spring) 1 jose PRN QID PRN TP MUSCLE PAIN; Start 04/05/18 at 17:45; Stop 04/18/18 at 14:09; Status DC Al Hydroxide/Mg Hydroxide (Mylanta Plus Xs) 15 ml PRN AFTMEALHC PRN PO DYSPEPSIA Last administered on 04/07/18at 02:11; Start 04/05/18 at 17:45; Stop at 14:09; Status DC Magnesium Hydroxide (Milk Of Magnesia) 2,400 mg PRN QHS PRN PO CONSTIPATION Last administered on 04/09/18at 17:50; Start 04/05/18 at 17:45; Stop 04/18/18 at 14:09; Status DC Calcium Carbonate/ Glycine (Tums) 500 mg PRN AFTMEALHC PRN PO INDIGESTION Last administered on 04/08/18at 04:46; Start 04/05/18 at 18:30; Stop 04/18/18 at 14:09 ; Status DC Mirtazapine (Remeron) 30 mg QHS PO Last administered on 04/07/18at 19:33; Start 04/05/18 at 21:00; Stop 04/08/18 at 16:58; Status DC Docusate Sodium (Colace) 100 mg BID PO Last administered on 04/18/18at 09:28; Start 04/05/18 at 21:00; Stop 04/18/18 at 14:09; Status DC Lactobacillus Rhamnosus (Culturelle) 1 cap DAILY PO Last administered on 09:28; Start 04/06/18 at 09:00; Stop 04/18/18 at 14:09; Status DC Melatonin 3 mg HS PO Last administered on 04/09/18at 20:00; Start 04/05/18 at 21 :00; Stop 04/10/18 at 18:16; Status DC Multivitamins/ Calcium (Thera-M Plus) 1 tab DAILY PO Last administered on at 09:28; Start 04/06/18 at 09:00; Stop 04/18/18 at 14:09; Status DC Pantoprazole Sodium (Protonix) 40 mg DAILY PO Last administered on 04/18/18at 09 :28; Start 04/06/18 at 09:00; Stop 04/18/18 at 14:09; Status DC Polyethylene Glycol (miraLAX) 17 gm DAILY PO Last administered on 04/18/18at 09: 28; Start 04/06/18 at 09:00; Stop 04/18/18 at 14:09; Status DC Trazodone HCl (Desyrel) 50 mg PRN QHS PRN PO INSOMNIA Last administered on 04/08at 00:23; Start 04/06/18 at 00:15; Stop 04/08/18 at 16:58; Status DC Olanzapine (ZyPREXA) 2.5 mg PRN Q24HRS PRN PO PSYCHOSIS; Start 04/06/18 at 14: 45; Stop 04/06/18 at 14:59; Status DC Olanzapine (ZyPREXA) 2.5 mg PRN Q2HR PRN PO ANXIETY/PSYCHOSIS Last administered on 04/08/18at 08:44; Start 04/06/18 at 15:00; Stop 04/08/18 at 15:23 ; Status DC Olanzapine (ZyPREXA ZYDIS) 2.5 mg PRN Q2HR PRN PO PSYCHOSIS Last administered on 04/15/18at 15:56; Start 04/08/18 at 15:30; Stop 04/18/18 at 14:09; Status DC Mirtazapine (Remeron) 15 mg QHS PO Last administered on 04/10/18at 20:28; Start 04/08/18 at 21:00; Stop 04/11/18 at 17:43; Status DC Trazodone HCl (Desyrel) 100 mg PRN QHS PRN PO INSOMNIA, MAY REPEAT X1 Last administered on 04/17/18at 20:01; Start 04/08/18 at 17:00; Stop 04/18/18 at 14:09 ; Status DC Famotidine (Pepcid) 20 mg DAILY PO Last administered on 04/18/18at 09:28; Start 04/09/18 at 09:00; Stop 04/18/18 at 14:09; Status DC Sertraline HCl (Zoloft) 25 mg DAILY PO Last administered on 04/13/18at 08:43; Start 04/09/18 at 09:00; Stop 04/13/18 at 16:40; Status DC Clonazepam (KlonoPIN) 0.5 mg HS PO Last administered on 04/11/18at 20:49; Start 04/09/18 at 21:00; Stop 04/11/18 at 23:00; Status DC Clonazepam (KlonoPIN) 0.25 mg HS PO Last administered on 04/16/18at 20:21; Start 04/14/18 at 21:00; Stop 04/16/18 at 21:01; Status DC Hydroxyzine HCl (Atarax) 25 mg PRN Q4HRS PRN PO ANXIETY / AGITATION Last administered on 04/18/18at 09:32; Start 04/09/18 at 10:45; Stop 04/18/18 at 14:09 ; Status DC Melatonin 6 mg HS PO Last administered on 04/17/18at 19:56; Start 04/10/18 at 21 :00; Stop 04/18/18 at 14:09; Status DC Tamsulosin HCl (Flomax) 0.4 mg QHS PO Last administered on 04/17/18at 19:56; Start 04/11/18 at 21:00; Stop 04/18/18 at 14:09; Status DC Amitriptyline HCl (Elavil) 25 mg QHS PO Last administered on 04/14/18at 20:04; Start 04/11/18 at 21:00; Stop 04/15/18 at 17:07; Status DC Sertraline HCl (Zoloft) 50 mg DAILY PO Last administered on 04/18/18at 09:28; Start 04/14/18 at 09:00; Stop 04/18/18 at 14:09; Status DC Amitriptyline HCl (Elavil) 37.5 mg QHS PO Last administered on 04/17/18at 19:59 ; Start 04/15/18 at 21:00; Stop 04/18/18 at 14:09; Status DC Active Scripts Active Calcium Carbonate 200 Mg Tab.chew 500 Mg PO PRN AFTMEALHC PRN 30 Days Reported Trazodone Hcl 100 Mg Tablet 100 Mg PO PRN QHS PRN Hydroxyzine Hcl 25 Mg Tablet 25 Mg PO PRN Q4HRS PRN Flomax (Tamsulosin Hcl) 0.4 Mg Cap.er.24h 0.4 Mg PO QHS Zoloft (Sertraline Hcl) 50 Mg Tablet 50 Mg PO DAILY Analgesic Spring (Methyl Salicylate/Menthol) 28 Gm Oint...g. 1 Jose TP PRN QID PRN Advanced Antacid Liquid (Mag Hydrox/Al Hydrox/Simeth) 355 Ml Oral.susp 15 Ml PO PRN AFTMEALHC PRN Milk Of Magnesia (Magnesium Hydroxide) 2,400 Mg/10 Ml Oral.susp 2,400 Mg PO PRN QHS PRN Pepcid (Famotidine) 20 Mg Tablet 20 Mg PO DAILY Amitriptyline Hcl 50 Mg Tablet 37.5 Mg PO QHS Acetaminophen 325 Mg Tablet 650 Mg PO PRN Q6HRS PRN Zyprexa Zydis (Olanzapine) 5 Mg Tab.rapdis 2.5 Mg PO PRN Q2HR PRN Miralax (Polyethylene Glycol 3350) 17 Gm Powd.pack 1 Packet PO DAILY LAST DOSE GIVEN: DATE: TIME: NEXT DOSE DUE: DATE: TIME: Melatonin 3 Mg Tablet 6 Mg PO HS Docusate Sodium 100 Mg Capsule 100 Mg PO BID Probiotic (Lactobacillus Acidophilus) 1 Each Capsule 1 Each PO DAILY Multivitamins (Multivitamin) 1 Each Tablet 1 Tab PO DAILY Omeprazole 20 Mg Tablet.dr 1 Tab PO DAILY I have reviewed the current psychotropics carefully including drug interactions. Risk benefit ratio favors no change other than as noted in my dictated progress note. Diagnosis: Problems: (1) Major depressive disorder, recurrent episode (2) Anxiety disorder (3) Dementia in Alzheimer's disease with depression (4) Dementia, vascular, with depression (5) Altered mental status (6) Impulse control disorder (7) Anxiety disorder RADHA MILLER MD Apr 18, 2018 18:33
--- NOTE | 2018-04-19 04:57 | PN ---
DATE: 04/17/2018 This is a late entry for 04/17/2018 covers elements not covered in my initial note. SUBJECTIVE: I met with the patient in the evening. Overall, per nursing report, the patient remains confused, compliant, anxious, up and down throughout the night. He is having a hard time finding the words for what he wanted to say on the day shift, seemed to have less tremors than previously. Anxious in the afternoon, given Atarax p.r.n. Niece and nephew visited. REVIEW OF SYSTEMS: Hard of hearing. No CV, , pulmonary, eye system symptoms on review. MENTAL STATUS EXAM: Oriented to himself. Insight, judgment, recent and remote memory, attention, concentration, fund of knowledge poor, consistent with his diagnosis mentioned in my initial note. He slept 6-3/4 hours previous evening. PLAN: Continue psychotropics mentioned in my initial note. MAN Berta MILLER MD DR: ALAN/thomas JOB#: [id number] / [id number]
--- NOTE | 2018-04-19 04:57 | PN ---
DATE: 04/16/2018 PSYCHIATRIC PROGRESS NOTE This is a late entry of 04/16/2018, covers elements not covered in my initial note. SUBJECTIVE: I met with the patient in the evening. The patient slept 7-3/4 hours previous evening. 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 REVIEW OF SYSTEMS: No CV, , pulmonary, eye system symptoms on review. He is hard of hearing. Appetite is fair. MENTAL STATUS EXAM: Oriented to himself. Insight, judgment, recent and remote memory, attention, concentration, fund of knowledge poor, consistent with his diagnosis mentioned in my initial note. PLAN: No change from initial note. Transition to [facility] Wednesday. MAN Berta MILLER MD DR: ALAN/thomas JOB#: [id number] / [id number]
--- NOTE | 2018-04-19 15:01 | DS ---
DATE OF DISCHARGE: 04/18/2018 DISCHARGE SUMMARY/PSYCHIATRIC PROGRESS NOTE This late entry 04/18/2018 covers elements not covered in my initial note. REASON FOR ADMISSION: Please refer to the admission history for details. Briefly, the patient is an 87-year-old male referred to us from the alf unit where he presented from home. He is medically stabilized, remained extremely confused, somewhat delusional. Being hard of hearing made communication even harder. [place] by himself in his home, even though the nieces were involved in his care peripherally. It was felt he needed inpatient psychiatric stabilization on account of wandering behaviors, which presented him to be a danger to himself given his living situation. SIGNIFICANT FINDINGS AND CLINICAL COURSE: Following admission, the patient was seen daily individually by myself from a psychiatric standpoint, followed medically per Dr. Gandhi/Dr. Rizvi. He remained confused, was very hard of hearing, somewhat delusional. Adjustments were made in his psychotropics. He seemed to respond to a combination of melatonin 6 mg at bedtime along with amitriptyline, which was adjusted to 37.5 mg p.o. at bedtime for his recalcitrant insomnia. Zyprexa was used p.r.n. together with trazodone and Zoloft was adjusted to 50 mg a day, Atarax p.r.n. Gradually mood appeared to improve. He was less agitated, less attempting to elope from the unit prior to discharge, 04/18/2018. REVIEW OF SYSTEMS: Hard of hearing. No CV, , pulmonary, eye system symptoms on review. MENTAL STATUS EXAM: Oriented to himself. Insight, judgment, recent and remote memory, attention, concentration, fund of knowledge poor, consistent with his diagnosis mentioned in my initial note. CONDITION AT DISCHARGE: Improved. FINAL DIAGNOSES: Major neurocognitive disorder, Alzheimer, vascular with delusion, depression, behavioral disturbance; anxiety disorder, unspecified; impulse control disorder, unspecified. Rest unchanged from admission. DISCHARGE MEDICATIONS: Please refer to the MRAD. DISCHARGE INSTRUCTIONS: Outpatient psychiatric and medical followup at [facility] where he was transferred. I will follow him there from a psychiatric standpoint. Time for discharge day management greater than 30 minutes. MAN Berta MILLER MD DR: ALAN/thomas JOB#: [id number] / [id number]
== END 2018-04-18 14:08 | DRG 885 ==
LOC: GEROPSY 15:15
PROVIDERS: ADMIT Psychiatry & Neurology Psychiatry; ATTEND Psychiatry & Neurology Psychiatry
DX: F33.9 Major depressive disorder, recurrent, unspecified (principal); F01.51 Vascular dementia, unspecified severity, with behavioral disturbance; F02.81 Dementia in other diseases classified elsewhere, unspecified severity, with behavioral disturbance; G30.9 Alzheimer's disease, unspecified; F41.9 Anxiety disorder, unspecified; K59.09 Other constipation; H91.90 Unspecified hearing loss, unspecified ear; K21.9 Gastro-esophageal reflux disease without esophagitis; F63.9 Impulse disorder, unspecified; G47.00 Insomnia, unspecified; Z60.2 Problems related to living alone; Z66 Do not resuscitate; Z87.442 Personal history of urinary calculi; Z90.49 Acquired absence of other specified parts of digestive tract; Z91.83 Wandering in diseases classified elsewhere
CPT/HCPCS: 36415; 80053; 80061; 81001; 82306; 82607; 83036; 83540; 83550; 83735; 84436; 84443; 84480; 85025; 86592; 92526; 92610